=== PATIENT | female | born 1935 | race Caucasian/White ===

== ENCOUNTER 2019-12-14 00:59 | Day surgery (SDC) | payer MEDICARE, BC, SELFPAY ==
[2019-12-07 09:39] VITALS: BMI 25.2
--- NOTE | 2019-12-14 09:33 | PM.IMHP ---
H&P: HPI History of Present Illness Chief complaint: Personal Hx Colon Polyps Narrative: Fabi Sharma is a 84 year old female presents for surveillance colonoscopy. Last colonoscopy was in 2012 and had hyperplastic polyp. She does report bowel habit changes. She reports alternating constipation and diarrhea for the last 6 months. She says when she has diarrhea she will have multiple loose stools per day. She denies any melena, hematochezia, adominal pains or rectal pains. 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 She denies family hx of GI maligancies. Denies abnormal weight loss, fever or chills. She does have hx of GERD and takes famotidine which controls those symptoms well. Review of Systems Review of Systems: All systems reviewed & are unremarkable except as noted in HPI and below PMFSH Family History Family History (Updated 03/16/19 @ 16:12 by DOCTOR UNKNOWN) Sibling Family history of chronic obstructive pulmonary disease Family history of lung cancer Family history of coronary artery disease Patient's brother is Father Family history of chronic obstructive pulmonary disease, Onset Age: 67 Patient's father is Mother Family history of heart disease in male family member before age 55, Onset Age: 72 Patient's mother is Family history of cardiovascular disease, Onset Age: 72 Other Family history of malignant neoplasm Social History Social History Smoking status: Never smoker Second hand tobacco smoke exposure: No Alcohol intake: never Meds Home Medications and Allergies Home Medications Medication Instructions Recorded Confirmed Type amlodipine 5 mg tablet 5 mg PO DAILY 10/03/19 12/07/19 History denosumab 60 mg/mL subcutaneous 60 mg SUB-Q [id number] 10/03/19 12/07/19 History syringe fluticasone propionate 50 2 spray NASAL DAILY 10/03/19 12/07/19 History mcg/actuation nasal spray,suspension meloxicam 15 mg tablet 15 mg PO DAILY 10/03/19 12/07/19 History valsartan 160 mg tablet 160 mg PO BID 10/03/19 12/07/19 History famotidine 20 mg tablet 20 mg PO BID #180 tablet 10/16/19 12/07/19 Rx calcium carbonate-vitamin D3 1 tablet PO BID 12/07/19 12/07/19 History [Caltrate 600 plus D] diphenhydramine-acetaminophen 1 tablet PO HS PRN 12/07/19 12/07/19 History [Tylenol PM Extra Strength] magnesium carbonate 400 mg DAILY 12/07/19 12/07/19 History swcqxphs-gsa-[place]-lycopen-lutein 1 tablet PO DAILY 12/07/19 12/07/19 History [Centrum Silver] Allergies Allergy/AdvReac Type Severity Reaction Status Date / Time No Known Allergies Allergy Verified 12/14/19 09:44 Exam Const: General: cooperative, healthy appearing, comfortable, alert and awake Nutritional Appearance: average body habitus Orientation/consciousness: oriented to person, oriented to place, oriented to time and patient oriented x3 Limitations: no limitations HENMT: Head: normal to inspection and normocephalic Mouth: Yes Normal oral and palatal mucosa present and Yes moist mucous membranes Neck: Neck: normal visual inspection, supple and no JVD Carotids: no bruits Resp: Effort & Inspection: normal respiratory effort and no respiratory distress Auscultation: clear to auscultation bilaterally Cardio: Rate: regular rate Rhythm: regular rhythm Heart sounds: S1 normal heart sound present, S2 normal heart sound present, no gallops, no murmurs and no rubs GI: Inspection: normal to inspection GI Palp: No abdominal tenderness and No No hepatosplenomegaly present Percussion: Yes normal to percussion Auscultation: normal bowel sounds Rectal Exam: deferred Skin: General skin exam: normal color Lesions: no lesions Rashes: no rashes Neuro: General: oriented to person, oriented to place, oriented to time, patient oriented x3 and moves all extremities Cognition (Neuro): normal cognition Speech: normal speech Gait exam (Neuro): Normal gait pr
[2019-12-14 09:48] VITALS: BP 153/96; PULSE 103; RESP 20; TEMP 36.7; O2SAT 98; BMI 25.0
[2019-12-14] MEDS: LACTATED RINGERS 1,000 ML 150 ML IV CONT (09:51)
--- NOTE | 2019-12-14 10:21 | WPDANESEPPF ---
Anes - Initial Pre Proc Eval Procedure: Operation Date: 12/14/19 10:30 Proposed Procedures p Screening Colonoscopy - Evan Longoria DO Date/Time: 12/14/19 10:21 Surgeon: Evan Longoria DO Pre Op Diagnosis: Personal Hx Colon Polyps Patient Data Age: 84 Gender: F Height: 4 ft 9 in Weight: 52.4 kg Last Vital Signs Temp 98.1 F 12/14/19 09:48 Pulse 103 H 12/14/19 09:48 Resp 20 12/14/19 09:48 BP 153/96 H 12/14/19 09:48 Pulse Ox 98 12/14/19 09:48 Allergies Allergy/AdvReac Type Severity Reaction Status Date / Time No Known Allergies Allergy Verified 12/14/19 09:44 Home Medications Medication Instructions Recorded Confirmed Type amlodipine 5 mg tablet 5 mg PO DAILY 10/03/19 12/07/19 History denosumab 60 mg/mL subcutaneous 60 mg SUB-Q [id number] 10/03/19 12/07/19 History syringe fluticasone propionate 50 2 spray NASAL DAILY 10/03/19 12/07/19 History mcg/actuation nasal spray,suspension meloxicam 15 mg tablet 15 mg PO DAILY 10/03/19 12/07/19 History valsartan 160 mg tablet 160 mg PO BID 10/03/19 12/07/19 History famotidine 20 mg tablet 20 mg PO BID #180 tablet 10/16/19 12/07/19 Rx calcium carbonate-vitamin D3 1 tablet PO BID 12/07/19 12/07/19 History [Caltrate 600 plus D] diphenhydramine-acetaminophen 1 tablet PO HS PRN 12/07/19 12/07/19 History [Tylenol PM Extra Strength] magnesium carbonate 400 mg DAILY 12/07/19 12/07/19 History bonexzxp-yrv-XY-lycopen-lutein 1 tablet PO DAILY 12/07/19 12/07/19 History [Centrum Silver] Patient hx anesthesia problems: none Family hx anesthesia problems: none PMFSH Family History Family History (Updated 03/16/19 @ 16:12 by DOCTOR UNKNOWN) Sibling Family history of chronic obstructive pulmonary disease Family history of lung cancer Family history of coronary artery disease Patient's brother is Father Family history of chronic obstructive pulmonary disease, Onset Age: 67 Patient's father is Mother Family history of heart disease in male family member before age 55, Onset Age: 72 Patient's mother is Family history of cardiovascular disease, Onset Age: 72 Other Family history of malignant neoplasm Social History Social History Smoking status: Never smoker Second hand tobacco smoke exposure: No Alcohol intake: never Anes - Eval Final PreProcedure Day of Procedure 12/14/19 10:21 Patient weight: normal Heart: regular rate and rhythm Lungs: clear to auscultation Airway: Mallampati scale class II Neurological: alert and oriented Last oral intake: >/= 8 hours ASA classification: III Emergent: no Anesthetic plan: proceed Anesthesia type and monitoring: general GIVS and standard monitoring Informed Consent: The patient's anesthetic plan and its attendant risks and benefits were discussed with the patient/family/POA. Questions were solicited and answers provided to the satisfaction of the patient/family/POA.
[2019-12-14 10:55] VITALS: BP 88/45; PULSE 80; RESP 16; O2SAT 98
[2019-12-14 11:05] VITALS: BP 114/65; PULSE 76; RESP 16; O2SAT 99
[2019-12-14 11:15] VITALS: BP 134/63; PULSE 86; RESP 18; O2SAT 97
== END 2019-12-14 11:46 | disposition home or self-care (01) ==
PROVIDERS: PCP Internal Medicine; Visit Provider Internal Medicine Gastroenterology
PROC: 0DJD8ZZ Inspection of Lower Intestinal Tract, Via Natural or Artificial Opening Endoscopic (ICD-10-PCS; CPT 45378; principal; 2019-12-14 10:30)
DX: Z12.11 Encounter for screening for malignant neoplasm of colon (principal); D12.0 Benign neoplasm of cecum; K57.30 Diverticulosis of large intestine without perforation or abscess without bleeding; K64.8 Other hemorrhoids; R19.4 Change in bowel habit; Z87.19 Personal history of other diseases of the digestive system; K21.9 Gastro-esophageal reflux disease without esophagitis
CPT/HCPCS: 45380; 88305; J2704; J7120

== ENCOUNTER 2020-03-04 10:24 | Outpatient (CLI) | payer MEDICARE, BC, SELFPAY ==
--- NOTE | ~2020-03-04 | MM_ITS ---
EXAMINATION: MM screening vasquez BI w higinio HISTORY: Screening mammogram TECHNIQUE: Craniocaudal and mediolateral oblique 3-D tomosynthesis images were obtained and synthetic 2-D images were generated. CAD analysis was submitted and interpreted. COMPARISON: 01/18/2019, 12/20/2017, 12/14/2016 bilateral digital screening mammogram examinations BREAST PARENCHYMAL COMPOSITION: The breasts are heterogeneously dense, which may obscure small masses . FINDINGS: Occasional benign calcifications. Stable mild fibroglandular asymmetry. There is no evidenc e of suspicious mass, calcification, or architectural distortion to suggest malignancy in either [address]. There has been no suspicious interval change. IMPRESSION: 1. No mammographic evidence of malignancy. 2. Recommend routine screening mammography in one year. BI-RADS Category 2: Benign finding(s). Reviewed, dictated and finalized at location A.
== END 2020-03-04 10:25 | disposition home or self-care (01) ==
LOC: ANHIMG 10:28
PROVIDERS: PCP Internal Medicine; Visit Provider Nurse Practitioner
DX: Z12.31 Encounter for screening mammogram for malignant neoplasm of breast (principal)
CPT/HCPCS: 77063; 77067

== ENCOUNTER 2020-04-04 08:07 | Outpatient (CLI) | payer MEDICARE, BC, SELFPAY ==
[2020-04-04 08:55] LABS: Alanine Aminotransferase 39 U/L (4-35); Albumin Level 4.6 g/dL (3.5-5.1); Alkaline Phosphatase 83 U/L (38-126); Aspartate Amino Transferase 39 U/L (14-36); Bilirubin,Total 0.4 mg/dL (0.2-1.3); Blood Urea Nitrogen 22 mg/dL (7-17); Calcium 9.3 mg/dL (8.4-10.2); Carbon Dioxide 27 mmol/L (22-30); Chloride 104 mmol/L (98-107); Estimated Glomerular Filt Rate > 60; Glucose 98 mg/dL (65-105); Potassium 3.7 mmol/L (3.4-5.0); Sodium 138 mmol/L (137-145)
[2020-04-04 10:24] LABS: Thyroid Stimulating Hormone 0.082 uIU/mL (0.465-4.680)
[2020-04-04 13:56] LABS: Free T4 Free Thyroxine 1.25 ng/mL (0.78-2.19)
== END 2020-04-04 08:08 | disposition home or self-care (01) ==
LOC: ANHLAB 08:10
PROVIDERS: PCP Internal Medicine; Visit Provider Internal Medicine
DX: E05.90 Thyrotoxicosis, unspecified without thyrotoxic crisis or storm (principal); I10 Essential (primary) hypertension; Z79.899 Other long term (current) drug therapy
CPT/HCPCS: 36415; 80053; 84439; 84443

== ENCOUNTER 2020-05-02 07:14 | Outpatient (CLI) | payer MEDICARE, BC, SELFPAY ==
--- NOTE | ~2020-05-02 | CT_ITS ---
EXAMINATION: CT abdomen w con INDICATION: Right-sided abdominal pain TECHNIQUE: Computed tomographic images of the abdomen were obtained after the administration of 100 c c of Omnipaque 350 intravenous contrast. The dose-length product (DLP) was 147.55 mGy-cm. Automated e xposure control and iterative reconstruction technique were employed. COMPARISON: 06/16/2019 FINDINGS: The lung bases are clear. The heart size is normal. The gallbladder is surgically absent. T he liver, spleen, pancreas, and adrenal glands are normal. The kidneys are unremarkable. There are no pathologically enlarged abdominal lymph nodes. There is calcified atherosclerosis of the aorta and m any of the other arteries. A 6 mm cyst is again noted in the right kidney. The left kidney is unremar kable. There is no free intraperitoneal gas or evidence of bowel obstruction. There is severe lumbar spondylosis. Again seen are several fat containing epigastric hernias, one of which demonstrates incr ease in size. IMPRESSION: 1. Multiple fat-containing epigastric hernias, one of which demonstrates slight interval increase in size. Reviewed, dictated and finalized at location A.
== END 2020-05-02 07:15 | disposition home or self-care (01) ==
LOC: ANHIMG 07:17
PROVIDERS: PCP Internal Medicine; Visit Provider Nurse Practitioner
DX: Z90.49 Acquired absence of other specified parts of digestive tract (principal); K44.9 Diaphragmatic hernia without obstruction or gangrene
CPT/HCPCS: 74160; Q9967

== ENCOUNTER 2020-08-06 14:25 | Outpatient (CLI) | payer MEDICARE, BC, SELFPAY ==
[2020-08-06 15:04] LABS: Basophils Percent Auto 0.5 % (0.2-1.2); Eosinophils Absolute Auto 0.1 K/mm3 (0-0.3); Eosinophils Percent Auto 0.6 % (0-4.4); Hematocrit 38.8 % (37.0-47.0); Hemoglobin 13.1 g/dL (12.0-15.0); Immature Granulocyte Absolute 0.05 K/mm3 (0.00-0.031); Immature Granulocyte Percent A 0.6 % (0-0.5); Lymphocytes Absolute Auto 2.42 K/mm3 (0.9-3.2); Lymphocytes Percent Auto 27.6 % (18.3-44.2); Mean Corpuscular HGB Conc 33.8 g/dl (32-36); Mean Corpuscular Volume 94.6 fl (80-100); Monocytes Absolute Auto 0.7 K/mm3 (0.1-0.6); Monocytes Percent Auto 7.7 % (2.6-8.5); Neutrophils Absolute Auto 5.5 K/mm3 (1.3-6.7); Platelet Count Result 430 k/mm3 (150-375); Red Cell Distribution Width 13.2 % (11.5-14.5); White Blood Count 8.8 K/mm3 (4.5-10.0)
[2020-08-06 15:15] LABS: Alanine Aminotransferase 81 U/L (4-35); Albumin Level 4.7 g/dL (3.5-5.1); Alkaline Phosphatase 96 U/L (38-126); Anion Gap 9 mmol/L (8-16); Aspartate Amino Transferase 47 U/L (14-36); Bilirubin,Total 0.3 mg/dL (0.2-1.3); Blood Urea Nitrogen 23 mg/dL (7-17); Calcium 9.3 mg/dL (8.4-10.2); Carbon Dioxide 26 mmol/L (22-30); Chloride 102 mmol/L (98-107); Estimated Glomerular Filt Rate > 60; Glucose 91 mg/dL (65-105); Potassium 3.9 mmol/L (3.4-5.0); Sodium 137 mmol/L (137-145)
[2020-08-06 15:45] LABS: Thyroid Stimulating Hormone 0.046 uIU/mL (0.465-4.680)
== END 2020-08-06 14:26 | disposition home or self-care (01) ==
PROVIDERS: PCP Internal Medicine; Visit Provider Nurse Practitioner
DX: R53.83 Other fatigue (principal); R11.0 Nausea
CPT/HCPCS: 36415; 80053; 84443; 85025

== ENCOUNTER 2020-08-07 07:13 | Outpatient (NON) | payer MEDICARE, BC, SELFPAY ==
[2020-08-08 02:14] LABS: SARS-CoV-2 RNA PCR Negative
== END 2020-08-07 07:14 ==
PROVIDERS: PCP Internal Medicine; Visit Provider Nurse Practitioner
DX: R11.0 Nausea (principal); R53.83 Other fatigue; Z20.828 Contact with and (suspected) exposure to other viral communicable diseases
CPT/HCPCS: 87635; C9803; U0003

== ENCOUNTER → 2020-08-13 07:49 | Outpatient (CLI) | payer MEDICARE, BC, SELFPAY ==
--- NOTE | ~2020-08-13 | US_ITS ---
EXAMINATION: US abdomen limited EXAM DATE: 08/13/2020 08:13 INDICATION: Elevated liver function tests. TECHNIQUE: Multiple grayscale and Doppler images of the abdomen right upper quadrant were obtained (b y a technologist who performed the scan) and subsequently reviewed. Comparison is made to prior exami nation from 02/18/2010. FINDINGS: The pancreatic head and body are normal in appearance. The pancreatic tail is not visualized. The l iver has normal echogenicity and contour. There are no focal liver lesions identified. There is no evidence of intrahepatic biliary duct dilation. Portal venous flow was seen in the hepatopedal, nor mal direction and has normal Doppler waveform. No right-sided hydronephrosis. Common bile duct measures 4 mm, which is normal. The gallbladder fossa is unremarkable. IMPRESSION: 1. Unremarkable abdominal ultrasound exam. Reviewed, dictated and finalized at location A.
== END ==
PROVIDERS: PCP Internal Medicine; Visit Provider Nurse Practitioner
DX: R74.8 Abnormal levels of other serum enzymes (principal)
CPT/HCPCS: 76705

== ENCOUNTER 2020-10-14 07:46 | Outpatient (CLI) | payer MEDICARE, BC, SELFPAY ==
[2020-10-14 08:17] LABS: Alanine Aminotransferase 28 U/L (4-35); Albumin Level 4.1 g/dL (3.5-5.1); Alkaline Phosphatase 77 U/L (38-126); Anion Gap 8 mmol/L (8-16); Aspartate Amino Transferase 32 U/L (14-36); Bilirubin,Total 0.4 mg/dL (0.2-1.3); Blood Urea Nitrogen 22 mg/dL (7-17); Calcium 9.2 mg/dL (8.4-10.2); Carbon Dioxide 28 mmol/L (22-30); Chloride 102 mmol/L (98-107); Cholesterol 221 mg/dL (0-200); Estimated Glomerular Filt Rate > 60; Glucose 97 mg/dL (65-105); HDL Direct 75 mg/dL; Potassium 3.9 mmol/L (3.4-5.0); Sodium 138 mmol/L (137-145); Triglycerides 86 mg/dL (<150)
[2020-10-14 08:28] LABS: LDL Cholesterol Direct 107 mg/dL
[2020-10-14 08:50] LABS: Thyroid Stimulating Hormone 0.063 uIU/mL (0.465-4.680)
[2020-10-14 08:58] LABS: Free T4 Free Thyroxine 1.27 ng/mL (0.78-2.19); Vitamin D 25 Hydroxy 66.3 ng/mL
== END 2020-10-14 07:47 | disposition home or self-care (01) ==
PROVIDERS: PCP Internal Medicine; Visit Provider Nurse Practitioner
DX: E78.2 Mixed hyperlipidemia (principal); E55.9 Vitamin D deficiency, unspecified; E05.90 Thyrotoxicosis, unspecified without thyrotoxic crisis or storm
CPT/HCPCS: 36415; 80053; 80061; 82306; 84439; 84443

== ENCOUNTER 2021-02-23 13:13 | Observation (INO) | payer MEDICARE, BC, SELFPAY ==
--- NOTE | ~2021-02-23 | XR_ITS ---
EXAMINATION: XR hip RT min 3V w AP pelvis INDICATION: Right hip pain TECHNIQUE: AP view of the pelvis and three views of the right hip are obtained. COMPARISON: 06/24/2018 FINDINGS: Bone alignment is normal. There is no fracture. There is mild osteoarthritis of the hips. C alcified atherosclerosis is noted. There are phleboliths in the pelvis. IMPRESSION: 1. No acute osseous abnormality. Reviewed, dictated and finalized at location A.
--- NOTE | ~2021-02-23 | MR_ITS ---
EXAMINATION: MR hip RT wo con DATE: 02/25/2021 07:37 INDICATION: Right hip pain. Fall. TECHNIQUE: Magnetic resonance imaging (MRI) of the right hip was performed without intravenous contra st. Sequences included axial and coronal PD-weighted FS FSE and axial T1-weighted FSE of the pelvis. Sequences of the hip included 2D FIESTA, T1-weighted fast GRE, and axial, coronal, and sagittal PD-we ighted FS FSE. COMPARISON: Pelvis and right hip radiographs 02/23/2021 FINDINGS: Bones/cartilage: There is lumbar levoscoliosis and severe spondylosis. No fracture. There is moderate osteoarthritis o f the hips including partial thickness cartilage loss. Labrum: There is a tear of the right acetabular labrum. Fluid: There are small hip joint effusions bilaterally. There is moderate bilateral trochanteric bursitis. Soft tissues: There is moderate tendinopathy of the hamstring origins bilaterally. The iliopsoas tendons are normal . There are partial tears of the gluteus minimus tendons bilaterally. The gluteus medius tendons are normal. IMPRESSION: 1. No fracture. 2. Moderate osteoarthritis of the hips. 3. Small bilateral hip joint effusions. 4. Partial tears of the gluteus minimus tendons bilaterally. 5. Moderate bilateral trochanteric bursitis. Reviewed, dictated and finalized at location A.
[2021-02-23 13:21] VITALS: BP 158/64; PULSE 82; RESP 20; TEMP 36.9; O2SAT 100
[2021-02-23] MEDS: KETOROLAC 15 MG/ML VIAL (*BKC) IM (15:59)
--- NOTE | 2021-02-23 17:04 | ED.LOWEXIN ---
HPI - Extremity Injury (Lower) General Chief Complaint: Extremity Injury, Lower Stated Complaint: right leg pain worsening since Time Seen by Provider: 02/23/21 14:02 Source: patient Mode of arrival: wheelchair Limitations: no limitations History of Present Illness HPI Narrative: 85-year-old female Here for right hip pain Patient states that about 2 or 3 months ago she had a bout of sciatica involving her left leg and received a Medrol Dosepak at that time and improved A couple weeks ago she started having a different sort of pain in her right hip area which tends to start laterally over the trochanter and radiate into the groin and was worse with movement or walking She got another Dosepak but it has not helped Several days ago she fell off of a stool and landed on her right hip and since then she has had more significant pain and effectively has been unable to walk; she is gotten to the bathroom only by holding on to her bed and a family member and barely makes it She does not have any numbness or weakness or bowel or bladder symptoms and really does not have any back pain Related Data Home Medications Medication Instructions Recorded Confirmed calcium carbonate-vitamin D3 1 tablet PO BID 12/07/19 11/01/20 [Caltrate 600 plus D] diphenhydramine-acetaminophen 1 tablet PO HS PRN 12/07/19 11/01/20 [Tylenol PM Extra Strength] pkxzdked-jev-JY-lycopen-lutein 1 tablet PO DAILY 12/07/19 11/01/20 [Centrum Silver] magnesium carbonate See Rx Instructions .ROUTE DAILY 08/06/20 11/01/20 Allergies Allergy/AdvReac Type Severity Reaction Status Date / Time No Known Allergies Allergy Verified 10/29/20 08:14 Review of Systems Review of Systems: All systems reviewed & are unremarkable except as noted in HPI and below Constitutional: Constitutional: Denies chills, Denies fever(s) and Denies headache(s) ENT: Denies headache(s) and Denies sore throat Cardiovascular: Cardiovascular: Denies chest pain and Denies dyspnea Respiratory: Respiratory: Denies cough and Denies dyspnea Gastrointestinal: Gastrointestinal: Denies abdominal pain, Denies diarrhea and Denies vomiting Genitourinary: Genitourinary: Denies urinary frequency and Denies dysuria Musculoskeletal: Musculoskeletal: Reports myalgias, Denies deformity, Reports arthralgias, Denies joint swelling and Denies numbness Integumentary/Breasts: Skin/Breast: Denies rash and Denies wounds Neurologic: Denies headache(s), Denies focal weakness and Denies numbness Psychiatric: Psychiatric: Reports no additional psychiatric complaints Allergic/Immunologic: Allergic/Immunologic: Reports no additional allergic/immunologic complaints PMFSH Past Medical History Medical History (Updated 02/23/21 @ 17:14 by Evan Elliott MD) Hyperthyroidism Overweight Screening for breast cancer Surgical History Surgical History (Updated 10/29/20 @ 08:25 by Maria M Fulton) Hx laparoscopic cholecystectomy Hx of hysterectomy Family History Family History Sibling Family history of chronic obstructive pulmonary disease Family history of lung cancer Family history of coronary artery disease Patient's brother is Father Family history of chronic obstructive pulmonary disease, Onset Age: 67 Patient's father is Mother Family history of heart disease in male family member before age 55, Onset Age: 72 Patient's mother is Family history of cardiovascular disease, Onset Age: 72 Other Family history of malignant neoplasm Social History Social History Smoking status: Never smoker Second hand tobacco smoke exposure: No Alcohol intake: never Gender identity (if verbalized by the patient): Female Spiritual care concerns: No Exam Const: General: cooperative and alert Orientation/consciousness: patient oriented x3
[2021-02-23 18:02] LABS: Basophils Percent Auto 0.3 % (0.2-1.2); Eosinophils Percent Auto 0.2 % (0-4.4); Hemoglobin 15.4 g/dL (12.0-15.0); Immature Granulocyte Absolute 0.04 K/mm3 (0.00-0.031); Immature Granulocyte Percent A 0.3 % (0-0.5); Lymphocytes Absolute Auto 1.62 K/mm3 (0.9-3.2); Lymphocytes Percent Auto 13.9 % (18.3-44.2); Mean Corpuscular HGB Conc 34.2 g/dl (32-36); Mean Corpuscular Hemoglobin 31.8 pg (26-34); Mean Platelet Volume 8.6 fl (7.4-10.4); Monocytes Absolute Auto 0.5 K/mm3 (0.1-0.6); Monocytes Percent Auto 4.4 % (2.6-8.5); Neutrophils Absolute Auto 9.5 K/mm3 (1.3-6.7); Neutrophils Percent Auto 80.9 % (45.5-73.1); Platelet Count Result 382 k/mm3 (150-375); Red Blood Count 4.84 M/mm3 (4.2-5.4); White Blood Count 11.7 K/mm3 (4.5-10.0)
[2021-02-23 18:07] VITALS: BP 160/77; PULSE 79; RESP 16; TEMP 36.6; O2SAT 98
[2021-02-23 18:14] LABS: Anion Gap 11 mmol/L (8-16); Blood Urea Nitrogen 18 mg/dL (7-17); Calcium 9.1 mg/dL (8.4-10.2); Carbon Dioxide 25 mmol/L (22-30); Chloride 101 mmol/L (98-107); Estimated Glomerular Filt Rate > 60; Glucose 105 mg/dL (65-105); Potassium 4.3 mmol/L (3.4-5.0); Sodium 137 mmol/L (137-145)
[2021-02-23 18:25] VITALS: BMI 25.6
--- NOTE | 2021-02-23 18:29 | ADMGEN ---
This patient, Alessandra Sharma, was admitted to 3 [facility] Surg Room 314-01. Patient/family oriented to hospital policies and general routines including ID bracelet, bed and alarms, visiting hours, pain management, procedures, bathroom and other care routines, personal items, smoking policy, room service/diet, and visiting hours. Information on how to activate the Rapid Response Team has been discussed. Patient/Family are encouraged to report perceived risks to care and to ask questions if they do not understand what they are told or what they should do.
[2021-02-23 18:38] VITALS: BP 173/70; PULSE 82; RESP 16; TEMP 36.3; O2SAT 99
[2021-02-23] MEDS: LACTATED RINGERS 1,000 ML 30 ML IV CONT (20:28)
[2021-02-23] MEDS: HYDROcodone/acetaminophen (*CRX) 5-325 MG TABLET 1 TAB PO (20:28)
--- NOTE | 2021-02-23 20:57 | PM.IMHP ---
H&P: HPI History of Present Illness Date/Time: 02/23/21 20:57 this is a 85-year-old female patient who has a history of osteoarthritis and osteoporosis. The patient has a history of having sciatica to her left hip and she was given a Solu-Medrol Dosepak which helped over the winter. However the patient has been having some pain with the right hip She was given a Solu-Medrol Dosepak which did not seem to help. The patient stated this past Wednesday night she stood up from the toilet and fell back on the ground and was gotten up with help but she is having difficulty moving and walking on that leg she cannot tolerate weight on that leg. She stated she laid around all day yesterday. The patient was given a etodolac for the discomfort by her primary care doctor and the patient stated that she stopped taking it because the side effects stated that it could affect her blood pressure. The patient is unable to do straight leg raises to the right and can do straight leg raises to the left. X-ray is read as no acute osseous abnormality. And started on [place] which the patient stated helped her discomfort. Date of service of 02/23/2021. Chief Complaint: Right hip pain Review of Systems Review of Systems: All systems reviewed & are unremarkable except as noted in HPI and below Constitutional: Constitutional: Reports as per HPI and Reports no additional constitutional complaints Eyes: Eyes: Reports as per HPI and Reports no additional eye complaints ENT: Reports system reviewed and no additional complaints, except as documented and Reports Normal hearing present Cardiovascular: Cardiovascular: Reports no additional cardiovascular complaints Respiratory: Respiratory: Reports no additional respiratory complaints and Reports no additional respiratory complaints Gastrointestinal: Gastrointestinal: Reports as per HPI and Reports no additional gastrointestinal complaints Musculoskeletal: Musculoskeletal: Reports no additional musculoskeletal complaints Integumentary/Breasts: Skin/Breast: Reports system reviewed and no additional complaints, except as docu and Reports as per HPI Neurologic: Reports system reviewed and no additional complaints, except as documented, Reports as per HPI and Reports Normal hearing present Psychiatric: Psychiatric: Reports no additional psychiatric complaints and Reports as per HPI Endocrine: Endocrine: Reports no additional endocrine complaints Hematologic/Lymphatic: Hematologic/Lymphatic: Reports no additional hematologic/lymphatic complaints Allergic/Immunologic: Allergic/Immunologic: Reports no additional allergic/immunologic complaints [facility] Past Medical History Medical History (Updated 02/23/21 @ 21:01 by Jasmina Wells NP) HTN (hypertension), malignant Hyperthyroidism Osteoporosis Overweight Screening for breast cancer Surgical History Surgical History (Updated 02/23/21 @ 21:03 by Jasmina Wells NP) H/O colonoscopy with polypectomy Hx laparoscopic cholecystectomy Hx of cataract surgery Hx of hysterectomy Hx of resection of liver Family History Family History Sibling Family history of chronic obstructive pulmonary disease Family history of lung cancer Family history of coronary artery disease Patient's brother is Father Family history of chronic obstructive pulmonary disease, Onset Age: 67 Patient's father is Mother Family history of heart disease in male family member before age 55, Onset Age: 72 Patient's mother is Family history of cardiovascular disease, Onset Age: 72 Other Family history of malignant neoplasm Social History Social History (Updated 02/23/21 @ 21:02 by Jasmina Wells NP) Social History: The patient is and lives with his significant other a rather he lives with her. Her niece is the durable power attorney recruiter for healthcare. The patient is a full code. The patient does
[2021-02-23 22:00] VITALS: BP 137/61; PULSE 69; RESP 20; TEMP 36.6; O2SAT 98
[2021-02-24] MEDS: HYDROcodone/acetaminophen (*CRX) 5-325 MG TABLET 1 TAB PO ×4 (05:43→22:37)
[2021-02-24 06:00] VITALS: BP 159/58; PULSE 70; RESP 18; TEMP 36.6; O2SAT 100
[2021-02-24 06:20] LABS: Basophils Percent Auto 0.2 % (0.2-1.2); Eosinophils Absolute Auto 0.1 K/mm3 (0-0.3); Eosinophils Percent Auto 0.8 % (0-4.4); Hematocrit 39.9 % (37.0-47.0); Hemoglobin 13.6 g/dL (12.0-15.0); Immature Granulocyte Absolute 0.05 K/mm3 (0.00-0.031); Immature Granulocyte Percent A 0.5 % (0-0.5); Lymphocytes Percent Auto 17.7 % (18.3-44.2); Mean Corpuscular HGB Conc 34.1 g/dl (32-36); Mean Corpuscular Hemoglobin 31.6 pg (26-34); Mean Corpuscular Volume 92.8 fl (80-100); Mean Platelet Volume 8.9 fl (7.4-10.4); Monocytes Absolute Auto 0.8 K/mm3 (0.1-0.6); Monocytes Percent Auto 7.7 % (2.6-8.5); Neutrophils Absolute Auto 7.8 K/mm3 (1.3-6.7); Neutrophils Percent Auto 73.1 % (45.5-73.1); Platelet Count Result 383 k/mm3 (150-375); White Blood Count 10.7 K/mm3 (4.5-10.0)
[2021-02-24 06:29] LABS: Alanine Aminotransferase 31 U/L (4-35); Albumin Level 4.3 g/dL (3.5-5.1); Alkaline Phosphatase 68 U/L (38-126); Anion Gap 7 mmol/L (8-16); Aspartate Amino Transferase 30 U/L (14-36); Bilirubin,Total 0.5 mg/dL (0.2-1.3); Blood Urea Nitrogen 16 mg/dL (7-17); Calcium 8.8 mg/dL (8.4-10.2); Carbon Dioxide 27 mmol/L (22-30); Chloride 102 mmol/L (98-107); Estimated Glomerular Filt Rate > 60; Glucose 93 mg/dL (65-105); Potassium 3.5 mmol/L (3.4-5.0); Sodium 136 mmol/L (137-145)
[2021-02-24 07:51] LABS: Vitamin D 25 Hydroxy 55.9 ng/mL
--- NOTE | 2021-02-24 08:48 | PCOTNOTE ---
Attempted OT evaluation, but unable to complete. Spoke to LIVE Gutiérrez who advised to hold until after CT scan. Will continue to follow.
--- NOTE | 2021-02-24 09:01 | PM.CNOR ---
Assessment and Plan Assessment and plan (1) Right hip pain: Code(s): M25.551 - Pain in right hip Status: Acute Assessment and Plan: Orthopedic consult requested for this 85-year-old female with a history of right hip pain for the last several weeks which has worsened status post fall. History, exam and radiographs reviewed with the patient. Radiographs the right hip reveal no evidence of fracture, dislocation or acute abnormalities. Patient has significant tenderness over the greater trochanter of the right hip with palpation. She is unable to lay on the affected side. She does also have pain with internal and external rotation of the right hip in the groin region. No shortening or external rotation noted. Positive ankle dorsiflexion / plantar flexion. 2+ pedal pulses and sensation is intact. Recommend MRI of the right hip at this time without contrast for further evaluation to rule out fracture which was unable to be seen on radiographs. Patient to be nonweightbearing of the right lower extremity in the interim. Recommend ice to the lateral hip and pain control. Pending MRI results, we will determine further plan of care. Thank you for allowing us to assist in the care this patient. Additional Plan This document was completed by using [employer] Direct speech recognition software, therefore spray gunner variances may occur. Despite proofreading, typographical errors may also occur. History of Present Illness HPI Consult date: 02/24/21 Requesting physician: Jasmina Wells NP Consult reason: other (Right Hip Pain s/p Fall ) Chief complaint: Right hip pain Narrative: 85-year-old female admitted with right hip pain. Patient was admitted from [facility] for further evaluation of right hip pain status post fall. Per patient report, she has had several week history of right lateral-sided hip pain. She contacted her primary care physician with started on a Medrol Dosepak which did not relieve her pain. She reports pain when laying on the affected side and when turning from side to side. She reports that several days ago she went to stand off of a stool and fell back down and hurt her hip. She has had increasing pain with ambulation since that time. Her pain radiates down to the right knee as well. Radiographs obtained in the emergency room reveal no acute osseous abnormality. She was admitted for further evaluation and pain control. Orthopedic consult requested by hospitalist physician. Review of Systems Constitutional: Constitutional: Reports no additional constitutional complaints, Denies excessive sweating, Denies fever(s) and Denies weight gain Eyes: Eyes: Reports no additional eye complaints and Denies change in vision ENT: Reports system reviewed and no additional complaints, except as documented and Reports Normal hearing present Cardiovascular: Cardiovascular: Denies chest pain, Denies diaphoresis, Denies leg ulcers and Denies dyspnea on exertion Respiratory: Respiratory: Reports no additional respiratory complaints, Denies cough and Denies dyspnea on exertion Gastrointestinal: Gastrointestinal: Reports no additional gastrointestinal complaints, Denies abdominal pain, Denies constipation, Denies nausea and Denies vomiting Genitourinary: Genitourinary: Denies hematuria and Denies urinary frequency Musculoskeletal: Musculoskeletal: Reports no additional musculoskeletal complaints and Reports as per HPI Neurologic: Reports Normal hearing present Endocrine: Endocrine: Reports no additional endocrine complaints, Denies change in body appearance, Denies excessive sweating, Denies polyphagia, Denies polydipsia and Denies polyuria PMFSH Past Medical History Medical History HTN (hypertension), malignant Hyperthyroidism Osteoporosis Overweight Screening for breast cancer Surgical History Surgical History (Reviewed 02/24/21 @ 11:50 by Marla
--- NOTE | 2021-02-24 09:24 | PCPTNOTE ---
Attempted PT eval. Hold therapy until CT scan done. Will await results.
[2021-02-24] MEDS: amLODIPine BESYLATE 5 MG TABLET BY MOUTH (09:27)
[2021-02-24] MEDS: MULTIVITAMINS /C LUTEIN (CENTRUM SILVER) TABLET *BKC 1 TAB PO (09:28)
[2021-02-24] MEDS: VALSARTAN 160 MG TABLET PO ×2 (09:28→16:31)
[2021-02-24] MEDS: PANTOPRAZOLE 40 MG TABLET PO (09:28)
--- NOTE | 2021-02-24 10:05 | PC.NURSE ---
to CT per bed
--- NOTE | 2021-02-24 10:14 | PC.NURSE ---
patient returning to room per bed. CT cancelled
[2021-02-24 14:00] VITALS: BP 132/78; PULSE 68; RESP 18; TEMP 36.7; O2SAT 97
--- NOTE | 2021-02-24 14:46 | PCOTNOTE ---
Attempted OT evaluation, but unable to complete at this time. Spoke to RN, patient went down for CT scan earlier, but scan was cancelled and MRI ordered instead. Patient still waiting to go for MRI. Per discussion with PA earlier, PA recommended waiting until after testing. Will attempt again tomorrow.
--- NOTE | 2021-02-24 16:55 | PM.IMPN ---
Progress Note: A&P Assessment and Plan (1) Acute hip pain: Code(s): M25.559 - Pain in unspecified hip Status: Acute Assessment and Plan: History of right hip pain for a few weeks acutely worsened after a mechanical fall when she was standing up from a seated position. XR shows no acute fractures. Waiting on MRI to evaluate for occult fracture or other pathology causing her pain. Appreciate orthopedic recommendations; MRI is ordered and she is to be nonweightbearing RLE until MRI is obtained. Continue supportive care with ice and pain control with norco and tylenol as needed. (2) HTN (hypertension), malignant: Code(s): I10 - Essential (primary) hypertension Status: Chronic Assessment and Plan: BP intermittently elevated, suspect related to pain. More stable this afternoon, last 132/78. Continue home amlodipine and valsartan. Monitor BP and adjust treatment as needed. Subjective Date/time seen: 02/24/21 1430 Interval history: Ms. Sharma is an 85yo F admitted for acute right hip pain. She describes right hip pain has been ongoing for a few weeks which worsened a few days ago when she fell trying to stand up from a seated position and was unable to walk yesterday due to pain. She reports pain is tolerable at present while she is resting in bed. She denies chest pain or shortness of breath. No nausea or vomiting. Review of Systems Review of Systems: All systems reviewed & are unremarkable except as noted in HPI and below Exam Narrative: Exam Narrative: General: Elderly female resting comfortably in semi-montez's position in bed in no acute distress. HEENT: Normocephalic, EOMI, oral mucosa moist. Cardiovascular: Rate and rhythm are regular. Respiratory: Lungs clear to auscultation bilaterally. Respirations even and non-labored. Tolerating room air. Abdomen: Soft, non-tender, non-distended, bowel sounds present. Extremities: Peripheral pulses intact. No edema or pain to palpation. Right lower extremity is neurovascularly intact. Pain to palpation over right hip and pain with range of motion. Neuro: Awake and alert. Answering questions appropriately. No focal neurological deficits. Speech is clear. Objective Data Vital Signs Vital Signs: Last Vital Signs Temp 98.0 F 02/24/21 14:00 Pulse 68 02/24/21 14:00 Resp 18 02/24/21 14:00 BP 132/78 02/24/21 14:00 Pulse Ox 97 02/24/21 14:00 Intake/Output Intake/Output: Intake & Output 02/21/21 02/22/21 02/23/21 02/24/21 23:59 23:59 23:59 23:59 Intake Total 540 Output Total 300 Balance 240 Meds/Results Medications: Active Medications Generic Name Dose Route Start Last Admin Trade Name Freq PRN Reason Stop Dose Admin Acetaminophen 650 mg 02/23/21 17:14 Acetaminophen 325 Mg Tablet PO Q4H PRN Mild Pain (1-3) or Fever Hydrocodone Bitart/Acetaminophen 1 tab 02/23/21 17:14 02/24/21 16:32 Hydrocodone/Acetaminophen (*Crx) 5-325 Mg Tablet PO 1 tab Q4H PRN Administration Pain Rated 4-6 Amlodipine Besylate 5 mg 02/24/21 09:00 02/24/21 09:27 Amlodipine Besylate 5 Mg Tablet BY MOUTH 5 mg DAILY [facility] Administration Calcium Carbonate 500 mg 02/24/21 09:00 02/24/21 16:31 Calcium/Vitamin D 500 Mg Tablet PO 500 mg BID [facility] Administration Latanoprost 1 drop 02/24/21 21:00 Latanoprost 0.005% Op Soln 2.5 Ml Btl EACH EYE HS [facility] Multivitamins/Minerals 1 tab 02/24/21 09:00 02/24/21 09:28 Multivitamins /C Lutein (Centrum Silver) Tablet *Bkc PO 1 tab DAILY [facility] Administration Ondansetron HCl 4 mg 02/23/21 17:14 Ondansetron Inj 4 Mg/2 Ml Vial IV PUSH Q4H PRN Nausea Pantoprazole Sodium 40 mg 02/24/21 09:00 02/24/21 09:28 Pantoprazole 40 Mg Tablet PO 40 mg QAM [facility] Administration Valsartan 160 mg 02/24/21 09:00 02/24/21 16:31 Valsartan
[2021-02-24] MEDS: ACETAMINOPHEN 325 MG TABLET 650 MG PO (20:19)
[2021-02-24] MEDS: LATANOPROST 0.005% OP SOLN 2.5 ML BTL 1 DROP EACH EYE (20:20)
[2021-02-24 22:00] VITALS: BP 147/57; PULSE 68; RESP 18; TEMP 36.2; O2SAT 97
[2021-02-25] MEDS: HYDROcodone/acetaminophen (*CRX) 5-325 MG TABLET 1 TAB PO (04:32)
[2021-02-25 06:00] VITALS: BP 149/68; PULSE 65; RESP 18; TEMP 35.9; O2SAT 97
[2021-02-25 06:30] LABS: Basophils Percent Auto 0.2 % (0.2-1.2); Eosinophils Absolute Auto 0.1 K/mm3 (0-0.3); Eosinophils Percent Auto 0.5 % (0-4.4); Hematocrit 39.5 % (37.0-47.0); Hemoglobin 13.6 g/dL (12.0-15.0); Immature Granulocyte Absolute 0.07 K/mm3 (0.00-0.031); Immature Granulocyte Percent A 0.4 % (0-0.5); Lymphocytes Absolute Auto 1.57 K/mm3 (0.9-3.2); Mean Corpuscular HGB Conc 34.4 g/dl (32-36); Mean Corpuscular Hemoglobin 31.8 pg (26-34); Mean Corpuscular Volume 92.3 fl (80-100); Mean Platelet Volume 9.1 fl (7.4-10.4); Monocytes Percent Auto 6.4 % (2.6-8.5); Neutrophils Absolute Auto 12.9 K/mm3 (1.3-6.7); Neutrophils Percent Auto 82.5 % (45.5-73.1); Platelet Count Result 373 k/mm3 (150-375); Red Blood Count 4.28 M/mm3 (4.2-5.4); Red Cell Distribution Width 13.8 % (11.5-14.5); White Blood Count 15.7 K/mm3 (4.5-10.0)
[2021-02-25 06:44] LABS: Anion Gap 4 mmol/L (8-16); Blood Urea Nitrogen 16 mg/dL (7-17); Calcium 8.8 mg/dL (8.4-10.2); Carbon Dioxide 28 mmol/L (22-30); Chloride 100 mmol/L (98-107); Estimated Glomerular Filt Rate > 60; Glucose 100 mg/dL (65-105); Magnesium 1.8 mg/dL (1.6-2.3); Sodium 132 mmol/L (137-145)
--- NOTE | 2021-02-25 07:58 | PC.NURSE ---
patient returned to floor from MRI at 723
--- NOTE | 2021-02-25 08:29 | PM.PNORT ---
Progress Note: A&P Assessment and Plan (1) Right hip pain: Code(s): M25.551 - Pain in right hip Status: Acute Assessment and Plan: Patient comfortable at rest but has difficulty with movement and weight-bearing. MRI performed this morning. Will try and get results of that. Discussed conservative treatment versus other options depending on what MRI shows. Patient verbalized understanding. Subjective Subjective Date/Time Seen: 02/25/21 08:29 Patient awake and alert. Complains of right hip pain radiating to the knee. Not much better today. She has been in bed. She is comfortable at rest but has pain with any movement or weight-bearing. MRI performed by her report this morning. Exam Const: General: cooperative Nutritional Appearance: average body habitus Orientation/consciousness: patient oriented x3 Limitations: no limitations HENMT: Head: normal to inspection Ears: hearing grossly normal bilaterally General nose exam: Normal external nose present Face and sinus: normal facial exam Mouth: Yes moist mucous membranes Teeth and gingiva: dentition normal Eyes: General: appearance normal, both eyes and all related structures Pupils: Equal, round and reactive pupils present EOM: EOMs intact bilaterally Neck: Neck: normal visual inspection Chest: Chest palpation & inspection: normal inspection of the chest Resp: Effort & Inspection: normal respiratory effort and able to speak in complete sentences Cardio: Jugular venous distension: no JVD Neuro: General: patient oriented x3 Cranial nerves: Yes Equal, round and reactive pupils present Extrem: General: normal to inspection and full ROM Right lower extremity: full ROM (No groin pain ), hip/thigh Details: normal to inspection, tenderness Location: of the hip Location: anteriorly and over the greater trochanter, of the proximal upper leg Location: laterally and of the mid upper leg Location: laterally, abnormal ROM Details: pain with active ROM during Details: to internal rotation and to external rotation and pain with resistance to Details: to internal rotation and to external rotation and other, knee Details: normal to inspection, tenderness Location: of the lateral joint line ( Lateral) and of the proximal tibia Details: laterally and normal ROM; no swelling, lower leg Details: normal to inspection and no edema; no tenderness, ankle Details: normal to inspection, no edema and normal ROM and foot Details: normal capillary refill, toes with normal ROM and vascular exam Details: dorsalis pedis pulse present Left lower extremity: normal to inspection, full ROM (No groin pain ), hip/thigh (]) Details: normal to inspection; no tenderness and no swelling and knee Details: normal to inspection and normal ROM; no tenderness and no swelling Objective Data Vital Signs Vital Signs: Vital Signs - 24 hr 02/24/21 14:00 02/24/21 22:00 02/25/21 06:00 Temperature 98.0 F 97.1 F L 96.7 F L Pulse Rate 68 68 65 Respiratory Rate 18 18 18 Blood Pressure 132/78 147/57 H 149/68 H Pulse Oximetry 97 97 97 Intake/Output Intake/Output: Intake & Output 02/22/21 02/23/21 02/24/21 02/25/21 23:59 23:59 23:59 23:59 Intake Total 824 250 Output Total 1050 350 Balance -226 -100 Meds/Results Medications: Active Medications Generic Name Dose Route Start Last Admin Trade Name Freq PRN Reason Stop Dose Admin Acetaminophen 650 mg 02/23/21 17:14 02/24/21 20:19 Acetaminophen 325 Mg Tablet PO 650 mg Q4H PRN Administration Mild Pain (1-3) or Fever Hydrocodone Bitart/Acetaminophen 1 tab 02/23/21 17:14 02/25/21 04:32 Hydrocodone/Acetaminophen (*Crx) 5-325 Mg Tablet PO 1 tab Q4H PRN Administration Pain Rated 4-6 Amlodipine Besylate 5 mg 02/24/21 09:00 02/24/21 09:27 Amlodipine Besylate 5 Mg Tablet BY MOUTH 5 mg DAILY [facility] Administration Calcium Carbonate 500 mg 02/24/21 09:00 02/24/21 16:31 Calcium/Vitamin D 500 Mg Tablet P
[2021-02-25] MEDS: amLODIPine BESYLATE 5 MG TABLET BY MOUTH (08:30)
[2021-02-25] MEDS: VALSARTAN 160 MG TABLET PO (08:30)
[2021-02-25] MEDS: MULTIVITAMINS /C LUTEIN (CENTRUM SILVER) TABLET *BKC 1 TAB PO (08:30)
[2021-02-25] MEDS: PANTOPRAZOLE 40 MG TABLET PO (08:31)
--- NOTE | 2021-02-25 09:17 | PCPTNOTE ---
Assisted pt back to bed. Instructed in WBAT RLE w/ walker.
--- NOTE | 2021-02-25 11:44 | PM.DS ---
DS: Admitting Diagnosis Admitting Diagnosis Admitting Diagnosis: intractable hip pain DS: Discharge Diagnosis Discharge Diagnosis (1) Acute hip pain: Code(s): M25.559 - Pain in unspecified hip Status: Acute Assessment and Plan: History of right hip pain for a few weeks acutely worsened after a mechanical fall when she was standing up from a seated position. -XR shows no acute fractures -MRI revealed no fracture, moderate osteoarthritis, small bilateral hip joint effusions, partial tears of the gluteus minimus tendons bilaterally and moderate bilateral trochanteric bursitis -pain minimal the day of discharge -ortho recommends outpatient PT and follow-up -patient has a walker at home that she can use as needed and did well with physical therapy (2) HTN (hypertension), malignant: Code(s): I10 - Essential (primary) hypertension Status: Chronic Assessment and Plan: Last blood pressure 149/68 -continue home valsartan and amlodipine (3) GERD (gastroesophageal reflux disease): Code(s): K21.9 - Gastro-esophageal reflux disease without esophagitis Status: Acute Assessment and Plan: No acute symptoms, continue home omeprazole DS: Summary Hospital Course Hospital Course: 85-year-old female who was relatively healthy who presented emergency room for right hip pain that is acute on chronic. She states that she has sciatica and chronic hip pain and several days ago she fell off a stool and landed on that hip which intensified the pain he. She has been unable to walk independently which is a new for her. She denied numbness weakness or bowel/bladder symptoms. Vitals in the ER were temperature 36.9? C, pulse 82, respiratory rate 20, blood pressure 158/64, pulse ox 100 on room air. Initial hip pelvis x-ray showed no acute abnormality. Patient was admitted to the hospitalist service as observation since she was unable to ambulate initially. She was started on pain medications and an MRI was obtained. Please see above for those findings. The day of discharge she was able to walk with a walker with minimal pain. She saw orthopedic surgeon, Dr. Rocha, who recommended outpatient physical therapy and to follow-up with her outpatient. At this time, she denied needing a steroid injection as the pain was almost improved. Patient was educated about the worrisome signs and symptoms to come back to emergency room for and was discharge in stable condition. She did have a bit of leukocytosis which I do not suspect infection--she had no cough, shortness of breath, dysuria, or any complaints. Could be due to recent fall. I do recommend a repeat CBC in [address] Hannah and let him know about this follow-up and he agreed to follow her. Status at Discharge Functional status at discharge: uses cane/walker Overall status at discharge: patient is progressing back to baseline Time Spent with Patient Time attestation: Total time spent providing and/or coordinating discharge services:36 min Time spent: Greater than 30 minutes Exam Narrative: Exam Narrative: General: Well developed well nourished patient in NAD HEENT: normocephalic Neck: supple Neuro: Alert and oriented x4 CV:RRR Resp:CTA Abd: Soft, non distended. No pain to palpation. Positive bowel sounds Extremities: No swelling, erythema, or pain to palpation to either hip. DS: Data Data Completed and Pending Labs on day of discharge: Labs from last 24 hours 02/25/21 02/25/21 05:56 05:56 WBC 15.7 H RBC 4.28 Hgb 13.6 Hct 39.5 MCV 92.3 MCH 31.8 MCHC 34.4 RDW 13.8 Plt Count 373 MPV 9.1 Immature Gran % (Auto) 0.4 Neut % (Auto) 82.5 H Lymph % (Auto) 10.0 L Isabela % (Auto) 6.4 Eos % (Auto) 0.5 Baso % (Auto) 0.2 Lymph # (Auto) 1.57 Isabela # (Auto) 1.0 H Eos # (Auto) 0.1 Baso # (Auto) 0.0 Abs Immat Gran (auto) 0.07 H Absolute Neuts (auto) 12.9 H Absolute Nucleated RBC
[2021-02-25 13:12] LABS: Add Urine Microscopic? YES; Appearance Urine Cloudy (Clear); Bacteria Urine Trace /hpf; Bilirubin Urine Negative (Negative); Blood Urine Negative (Negative); Color Urine Yellow (Yellow); Glucose Urine UA Negative (Negative); Ketones Urine 1+ mg/dL (Negative); Leukocyte Esterase Ur Negative LEU/UL (Negative); Mucus Urine Rare /lpf; Nitrate Urine Negative (Negative); Protein Urine Negative (Negative); RBC Urine 0-2 /hpf (0-2); Specific Grav Ur 1.017 (1.001-1.035); Squamous Epithelial Cell Urine Occasional /hpf (Few); Urobilinogen Urine Negative mg/dL (<2.0); WBC Urine 0-3 /hpf
== END 2021-02-25 13:30 | disposition home or self-care (01) ==
LOC: ANHED 17:31 → ANH3MEDSUR 02-24 04:19
PROVIDERS: Nurse Practitioner; Physician Assistant; Admitting Provider Internal Medicine; Emergency Provider Emergency Medicine; PCP Internal Medicine; Visit Provider Physician Assistant
DX: M16.11 Unilateral primary osteoarthritis, right hip (principal); M25.551 Pain in right hip; M70.62 Trochanteric bursitis, left hip; M70.61 Trochanteric bursitis, right hip; I10 Essential (primary) hypertension; E03.9 Hypothyroidism, unspecified; W19.XXXA Unspecified fall, initial encounter; Z79.899 Other long term (current) drug therapy
CPT/HCPCS: 36415; 73502; 73721; 80048; 80053; 81001; 82306; 83735; 85025; 96360; 96361; 96372; 97161; 97165; 99285; A9270; G0378; J1885; J7120

== ENCOUNTER 2021-03-04 08:32 | Outpatient (CLI) | payer MEDICARE, BC, SELFPAY ==
[2021-03-04 09:05] LABS: Basophils Absolute Auto 0.1 K/mm3 (0.0-0.1); Basophils Percent Auto 0.7 % (0.2-1.2); Eosinophils Absolute Auto 0.2 K/mm3 (0-0.3); Eosinophils Percent Auto 2.1 % (0-4.4); Hematocrit 38.4 % (37.0-47.0); Hemoglobin 12.8 g/dL (12.0-15.0); Immature Granulocyte Absolute 0.05 K/mm3 (0.00-0.031); Immature Granulocyte Percent A 0.7 % (0-0.5); Lymphocytes Absolute Auto 1.88 K/mm3 (0.9-3.2); Mean Corpuscular HGB Conc 33.3 g/dl (32-36); Mean Corpuscular Hemoglobin 31.5 pg (26-34); Mean Corpuscular Volume 94.6 fl (80-100); Mean Platelet Volume 8.7 fl (7.4-10.4); Monocytes Absolute Auto 0.6 K/mm3 (0.1-0.6); Monocytes Percent Auto 7.8 % (2.6-8.5); Neutrophils Absolute Auto 4.8 K/mm3 (1.3-6.7); Neutrophils Percent Auto 63.7 % (45.5-73.1); Platelet Count Result 386 k/mm3 (150-375); Red Blood Count 4.06 M/mm3 (4.2-5.4); White Blood Count 7.5 K/mm3 (4.5-10.0)
== END 2021-03-04 08:33 | disposition home or self-care (01) ==
PROVIDERS: PCP Internal Medicine; Visit Provider Physician Assistant
DX: D72.829 Elevated white blood cell count, unspecified (principal)
CPT/HCPCS: 36415; 85025

== ENCOUNTER 2021-04-02 09:48 | Outpatient (CLI) | payer MEDICARE, BC, SELFPAY ==
--- NOTE | ~2021-04-02 | MM_ITS ---
EXAMINATION: MM screening vasquez BI w higinio HISTORY: Screening TECHNIQUE: Craniocaudal and mediolateral oblique 3-D tomosynthesis images were obtained and synthetic 2-D images were generated. CAD analysis was submitted and interpreted. COMPARISON: Comparison to multiple prior studies sequentially, with oldest reviewed study dated 12/12. BREAST PARENCHYMAL COMPOSITION: The breasts are heterogeneously dense, which may obscure small masses . FINDINGS: There is no evidence of suspicious mass, calcification, or architectural distortion to sugg est malignancy in either breast. There has been no suspicious interval change. IMPRESSION: 1. No mammographic evidence of malignancy. 2. Recommend routine screening mammography in one year. BI-RADS Category 1: Negative Reviewed, dictated and finalized at location A.
--- NOTE | ~2021-04-02 | DEXA_ITS ---
Bone Density Report Name: Alessandra Sharma Age: 85 Sex: Female Ethnicity: White Date of : 1935 Indication: osteopenia; monitoring treatment; height loss; hysterectomy; Referring Provider: ZAIN HILL Study: Bone densitometry was performed. Exam Date: April 02, 2021 Accession number: [id number] Bone Density: Region BMD T-score Z-score Classification AP Spine (L3, L4) 1.150 0.4 3.5 Normal Femoral Neck (Left) 0.574 -2.5 0.0 Osteoporosis Total Hip (Left) 0.794 -1.2 1.1 Osteopenia Total Hip Bilateral Avg 0.805 -1.2 1.2 Osteopenia Femoral Neck (Right) 0.584 -2.4 0.1 Osteopenia Total Hip (Right) 0.814 -1.1 1.3 Osteopenia World Health Organization criteria for BMD impression classify patients as: Normal (T-score at or above -1.0), Osteopenia (T-score between -1.0 and -2.5), or Osteoporosis (T-score at or below -2.5). 10-year Fracture Risk: FRAX not reported because: Some T-score for Spine Total or Hip Total or Femoral Neck at or below -2.5 Treated for osteoporosis Previous Exams: Region Exam Age BMD T-score BMD Change BMD Change Date g/cm2 vs Baseline vs Previous AP Spine(L3, L4) 04/02/2021 85 1.150 0.4 -0.020(-1.7%)# -0.030(-2.5%)# 12/01/2010 75 1.180 0.7 0.010(0.8%) 0.010(0.8%) 10/05/2007 71 1.170 0.6 Total Hip(Left) 04/02/2021 85 0.794 -1.2 0.029(3.8%)# 0.007(0.9%) 01/18/2019 83 0.787 -1.3 0.022(2.9%)# 0.024(3.2%) 12/14/2016 81 0.763 -1.5 -0.002(-0.3%)# 0.032(4.4%)* 12/10/2014 79 0.731 -1.7 -0.034(-4.4%)# -0.046(-5.9%)# 12/05/2012 77 0.777 -1.4 0.012(1.5%)# 0.051(7.0%)# 12/01/2010 75 0.726 -1.8 -0.040(-5.2%)* -0.040(-5.2%)* 10/05/2007 71 0.765 -1.4 Total Hip(Right) 04/02/2021 85 0.814 -1.1 0.023(2.9%)# 0.026(3.2%) 01/18/2019 83 0.788 -1.3 -0.003(-0.4%)# 0.045(6.1%)* 12/14/2016 81 0.743 -1.6 -0.048(-6.1%)# 0.019(2.6%) 12/10/2014 79 0.724 -1.8 -0.067(-8.5%)# -0.075(-9.4%)# 12/05/2012 77 0.799 -1.2 0.008(1.1%)# 0.045(5.9%)# 12/01/2010 75 0.755 -1.5 -0.036(-4.6%)* -0.036(-4.6%)* 10/05/2007 71 0.791 -1.2 *Denotes significance at 95% confidence level, LSC for AP Spine = 0.022 g/cm2, LSC for Total Hip = 0.027 g/cm2 Clinical Information Provided by Patient: Is being treated for osteoporosis Has used the following medications: Prolia (i.e. denosumab), Calcium Has the following medical conditions: Hysterectomy Patient maximum height was 59 Menopause Age: 49 No rosaa
== END 2021-04-02 09:49 | disposition home or self-care (01) ==
LOC: ANHIMG 09:49
PROVIDERS: PCP Internal Medicine; Visit Provider Internal Medicine
DX: Z12.31 Encounter for screening mammogram for malignant neoplasm of breast (principal); M81.0 Age-related osteoporosis without current pathological fracture; M85.851 Other specified disorders of bone density and structure, right thigh; M85.852 Other specified disorders of bone density and structure, left thigh
CPT/HCPCS: 77063; 77067; 77080

== ENCOUNTER 2021-04-11 08:41 | Outpatient (CLI) | payer MEDICARE, BC, SELFPAY ==
[2021-04-11 09:12] LABS: Alanine Aminotransferase 30 U/L (4-35); Albumin Level 4.5 g/dL (3.5-5.1); Alkaline Phosphatase 79 U/L (38-126); Anion Gap 7 mmol/L (8-16); Aspartate Amino Transferase 45 U/L (14-36); Bilirubin,Total 0.4 mg/dL (0.2-1.3); Blood Urea Nitrogen 12 mg/dL (7-17); Calcium 9.9 mg/dL (8.4-10.2); Carbon Dioxide 28 mmol/L (22-30); Chloride 104 mmol/L (98-107); Cholesterol 262 mg/dL (0-200); Estimated Glomerular Filt Rate > 60; Glucose 99 mg/dL (65-105); HDL Direct 88 mg/dL; Potassium 4.2 mmol/L (3.4-5.0); Sodium 139 mmol/L (137-145); Triglycerides 132 mg/dL (<150)
[2021-04-11 09:23] LABS: LDL Cholesterol Direct 94 mg/dL
[2021-04-11 09:43] LABS: Thyroid Stimulating Hormone 0.042 uIU/mL (0.465-4.680)
[2021-04-11 10:15] LABS: Free T4 Free Thyroxine 1.19 ng/mL (0.78-2.19); Vitamin D 25 Hydroxy 63.2 ng/mL
== END 2021-04-11 08:42 | disposition home or self-care (01) ==
PROVIDERS: PCP Internal Medicine; Visit Provider Internal Medicine
DX: E05.90 Thyrotoxicosis, unspecified without thyrotoxic crisis or storm (principal); I10 Essential (primary) hypertension; Z90.49 Acquired absence of other specified parts of digestive tract; E78.5 Hyperlipidemia, unspecified; E55.9 Vitamin D deficiency, unspecified
CPT/HCPCS: 36415; 80053; 80061; 82306; 84439; 84443

== ENCOUNTER 2021-04-15 08:30 | Outpatient (RCR) | payer MEDICARE, BC, SELFPAY ==
--- NOTE | 2021-03-12 11:16 | PTOPEVAL ---
Thank you for referring Alessandra Sharma to [facility].? The patient is scheduled to be seen for therapy? 2 x/week for 5 weeks. Please review, sign, date and return this plan of care AFUA. I agree with and certify that the following plan of care is medically necessary. 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 She was given medication, but no relief. Subjective Information She reports limitations with Query Text:As Reported By Patient/ standing, walking, negotiating Family steps and performing daily chores. She has increased pain with steps when leading with right leg. Reports difficulty with community walking for shopping. C/o throbbing pain on right groin, lateral/posterior hip region. Does not use a cane or walker. Does not perform a walking or exercise program. She spends most of her time sitting due to pain. Pain Assessment Self Report Pain Assessment Right Hip(s) Reported Pain Level 8 Pain Description Aching,Throbbing Pain Frequency Acute,Continuous Lowest Pain Intensity 6 Greatest Pain Intensity 10 Pain Aggravating Factors Exercise/Activity,Stair Climbing,Walking,Weight Bearing/Standing Pain Score Lower Extremity Muscle Strength Testing Hip Strength Right Hip Flexion Strength 3 Fair Hip Extension Strength 2+ Poor + Hip Abduction Strength 2 Poor Hip Adduction Strength 2+ Poor + Left Hip Flexion Strength 4- Good - Hip Extension Strength 3 Fair
--- NOTE | 2021-04-15 09:13 | PTOPEVAL ---
Thank you for referring Alessandra Sharma to [facility].? Rashad Edna has attended 10 therapy visits to address LE impairments. As result of skilled therapy services she demonstrates progress with leg strength, improved pain, improved functional mobility with walking on level surfaces and steps. She has been provided a HEP, but is not consistent with performing. She has partially achieved her therapy goals at this time. Will DC skilled therapy services a this time with recommendation to continue with home program. Please review, sign, date and return this discharge summary AFUA. I agree with and certify that the following plan of care is medically necessary. Referring Physician Date Attending Provider: JONO Billings Referring Provider: JONO Billings Physical Therapy Discharge Note Diagnosis right hip trochanteric bursitis Onset 02/19/21 Additional Evaluation Detail She went to hospital 02/23/21 due to progression of pain. She was given medication, but no relief. Subjective Information She reports continued Query Text:As Reported By Patient/ limitations with prolonged Family standing, distance walking, negotiating steps and performing daily chores. She is able to get in/out of the car better. She spends most of her day watching TV. Reports improved ability to community walking for shopping. States the pain is intermittent with non- consistent activities to increase the pain. She is not using ice/heat on her hip at home. She does take over the counter medication as needed. She is performing HEP 3-4x/wk. C/o throbbing pain on right lateral hip region only. Pain Assessment Self Report Pain Assessment Right Hip(s) Reported Pain Level 4 Pain Description Soreness,Throbbing Pain Frequency Chronic,Continuous Lowest Pain Intensity 4 Greatest Pain Intensity 9 Pain Aggravating Factors None Lower Extremity Range of Motion General Lower Extremity Range of Motion Gross Lower Extremity Range of Motion no pain with hip motion in all Comments directions Lower Extremity Muscle Strength Testing Hip Strength Right Hip Flexion Strength 3+ Fair + Hip Extension Strength 3- Fair - Hip Abduction Strength 3- Fair - Hip Adduction Strength
== END 2021-04-15 11:45 | disposition home or self-care (01) ==
LOC: ANHPT 08:30
PROVIDERS: PCP Internal Medicine; Referring Provider Nurse Practitioner Family; Visit Provider Nurse Practitioner Family
DX: M70.61 Trochanteric bursitis, right hip (principal)
CPT/HCPCS: 97014; 97110; 97140; 97162; G0283

== ENCOUNTER 2021-04-22 09:08 | Outpatient (CLI) | payer MEDICARE, BC, SELFPAY ==
--- NOTE | ~2021-04-22 | CT_ITS ---
EXAMINATION: CT abdomen w con DATE: 04/22/2021 09:54 INDICATION: Abdominal pain TECHNIQUE: Computed tomography (CT) of the abdomen and pelvis was performed with 100 cc Omnipaque 350 intravenous contrast. The dose-length product was 129.19 mGy-cm. Automated exposure control and iter ative reconstruction technique were employed. COMPARISON: CT dated 05/02/2020. FINDINGS: There is dependent atelectasis. Heart size is normal. No significant pleural or pericardial effusion. No lymphadenopathy. No evidence for aortic aneurysm. Small hiatal hernia. Fatty infiltration of the liver. Status post cholecystectomy. The spleen, pancreas, adrenal glands ar e unremarkable. There are small subcentimeter hypodensities of the kidneys bilaterally. Severe lumbar spondylosis with levoscoliosis. No acute osseous abnormality. There is thickening of the ascending colon and transverse colon, suspicious for colitis. No obstructi on. Colonic diverticulosis without evidence for diverticulitis. There are multiple small fat-containi ng ventral abdominal wall hernias. IMPRESSION: 1. Mild thickening of the ascending and transverse colon, suspicious for colitis, most likely infecti ous or inflammatory. 2: Multiple small upper abdominal ventral hernias containing fat. 3: Hepatic steatosis. Reviewed, dictated and finalized at location B. IMPRESSION: 1. Mild thickening of the ascending and transverse colon, suspicious for coliti s, most likely infectious or inflammatory. 2: Multiple small upper abdominal ventral hernias containing fat. 3: Hepatic steatosis.
== END 2021-04-22 09:09 | disposition home or self-care (01) ==
PROVIDERS: PCP Internal Medicine; Visit Provider Nurse Practitioner
DX: R10.9 Unspecified abdominal pain (principal); R74.8 Abnormal levels of other serum enzymes; K76.0 Fatty (change of) liver, not elsewhere classified; K43.9 Ventral hernia without obstruction or gangrene
CPT/HCPCS: 74160; Q9967

== ENCOUNTER 2021-06-13 01:39 | Day surgery (SDC) | payer MEDICARE, BC, SELFPAY ==
[2021-05-28 15:02] VITALS: BMI 26.2
[2021-06-13 09:40] VITALS: BP 140/84; PULSE 103; RESP 16; TEMP 36.3; O2SAT 95
[2021-06-13] MEDS: LACTATED RINGERS 1,000 ML 150 ML IV CONT (09:42)
--- NOTE | 2021-06-13 10:07 | WPDANESEPPF ---
Anes - Initial Pre Proc Eval Procedure: Operation Date: 06/13/21 10:30 Proposed Procedures p Colonoscopy - Baldev Edwards MD Date/Time: 06/13/21 10:07 Surgeon: aBldev Edwards MD Pre Op Diagnosis: colitis Patient Data Age: 85 Gender: F Height: 1.42 m Weight: 52 kg Last Vital Signs Temp 97.4 F L 06/13/21 09:40 Pulse 103 H 06/13/21 09:40 Resp 16 06/13/21 09:40 BP 140/84 06/13/21 09:40 Pulse Ox 95 06/13/21 09:40 Allergies Allergy/AdvReac Type Severity Reaction Status Date / Time No Known Allergies Allergy Verified 06/13/21 09:39 Home Medications Medication Instructions Recorded Confirmed Type Centrum Silver 1 tablet PO DAILY 12/07/19 06/13/21 History diphenhydramine-acetaminophen 1 tablet PO HS PRN 12/07/19 06/13/21 History [Tylenol PM Extra Strength] denosumab 60 mg/mL subcutaneous 60 mg SUB-Q [id number] #1 ml 03/22/20 06/13/21 Rx syringe valsartan 160 mg tablet 160 mg PO BID #180 tablet 01/17/21 06/13/21 Rx latanoprost 1 drp EACH EYE HS 02/23/21 06/13/21 History amlodipine 5 mg PO BID 04/28/21 06/13/21 History calcium 1,200 mg PO DAILY 04/28/21 06/13/21 History ketotifen fumarate [Refresh Eye 1 drp OPHTHALMIC (EYE) BID 04/28/21 06/13/21 History Itch Relief] multivitamin-calcium carb-iron 2 tablet PO DAILY 04/28/21 06/13/21 History [Nature's Bounty 1] omega-3 fatty acids [[place] 3 Fish 2,000 mg PO DAILY 04/28/21 06/13/21 History Oil] vit C,G-Ce-chhzk-lutein-zeaxan 1 tablet PO BID 04/28/21 06/13/21 History [PreserVision AREDS-2] omeprazole 20 mg PO PRN PRN 05/28/21 06/13/21 History Patient hx anesthesia problems: none Family hx anesthesia problems: none PMFSH Past Medical History Medical History Greater trochanteric bursitis of right hip HTN (hypertension), malignant Hyperthyroidism Osteoporosis Overweight Right hip pain Screening for breast cancer Surgical History Surgical History H/O colonoscopy with polypectomy Hx laparoscopic cholecystectomy Hx of cataract surgery Hx of hysterectomy Hx of resection of liver Family History Family History Sibling Family history of chronic obstructive pulmonary disease Family history of lung cancer Family history of coronary artery disease Patient's brother is Father Family history of chronic obstructive pulmonary disease, Onset Age: 67 Patient's father is Mother Family history of heart disease in male family member before age 55, Onset Age: 72 Patient's mother is Family history of cardiovascular disease, Onset Age: 72 Other Family history of malignant neoplasm Social History Social History Social History: The patient is and lives with his significant other a rather he lives with her. Her niece is the durable power attorney general for healthcare. The patient is a full code. The patient does not have any children. She worked for an insurance company. The patient desires to be a full code but does not want to live in a vegetative state. The patient has dogs at home as well. The patient has never smoked. She does not use any alcohol or illicit drugs. Smoking status: Never smoker Second hand tobacco smoke exposure: No Alcohol intake: never Substance use: never Substance use type: does not use Living arrangements: with friend(s) Gender identity (if verbalized by the patient): Female Spiritual care concerns: No Anes - Eval Final PreProcedure Day of Procedure 06/13/21 10:07 Patient weight: normal Heart: regular rate and rhythm Lungs: clear to auscultation Airway: Mallampati scale class II Neurological: alert and oriented Last oral intake: >/= 8 hours ASA classification: III Emergent: no Anesthetic silvino
--- NOTE | 2021-06-13 10:29 | PM.HPGS ---
History of Present Illness History of Present Illness Consent: Risks, benefits, and alternatives have been discussed and questions answered. Patient agrees to proceed with procedure. Chief complaint: colitis Narrative: Alessandra Sharma is a 85 year old female who had abdominal pain, CT scan showed right sided colitis, no pain now. Last colonoscopy 11/2019 with small polyp and diverticulosis. Review of Systems Constitutional: Constitutional: Denies headache(s) and Denies weakness Eyes: Eyes: Denies blurry vision ENT: Reports Normal hearing present, Denies headache(s) and Denies neck pain Cardiovascular: Cardiovascular: Denies chest pain and Denies dyspnea Respiratory: Respiratory: Denies dyspnea Gastrointestinal: Gastrointestinal: Reports no additional gastrointestinal complaints Genitourinary: Genitourinary: Denies dysuria Musculoskeletal: Musculoskeletal: Denies neck pain Integumentary/Breasts: Skin/Breast: Denies dry skin Neurologic: Reports Normal hearing present, Denies headache(s) and Denies weakness Psychiatric: Psychiatric: Denies anxiety Endocrine: Endocrine: Denies change in body appearance Hematologic/Lymphatic: Hematologic/Lymphatic: Denies easy bleeding Allergic/Immunologic: Allergic/Immunologic: Denies urticaria PMFSH Past Medical History Medical History Greater trochanteric bursitis of right hip HTN (hypertension), malignant Hyperthyroidism Osteoporosis Overweight Right hip pain Screening for breast cancer Surgical History Surgical History H/O colonoscopy with polypectomy Hx laparoscopic cholecystectomy Hx of cataract surgery Hx of hysterectomy Hx of resection of liver Family History Family History Sibling Family history of chronic obstructive pulmonary disease Family history of lung cancer Family history of coronary artery disease Patient's brother is Father Family history of chronic obstructive pulmonary disease, Onset Age: 67 Patient's father is Mother Family history of heart disease in male family member before age 55, Onset Age: 72 Patient's mother is Family history of cardiovascular disease, Onset Age: 72 Other Family history of malignant neoplasm Social History Social History Social History: The patient is and lives with his significant other a rather he lives with her. Her niece is the durable power billboard poster helper for healthcare. The patient is a full code. The patient does not have any children. She worked for an insurance company. The patient desires to be a full code but does not want to live in a vegetative state. The patient has dogs at home as well. The patient has never smoked. She does not use any alcohol or illicit drugs. Smoking status: Never smoker Second hand tobacco smoke exposure: No Alcohol intake: never Substance use: never Substance use type: does not use Living arrangements: with friend(s) Gender identity (if verbalized by the patient): Female Spiritual care concerns: No Meds Home Medications and Allergies Home Medications Medication Instructions Recorded Confirmed Type Centrum Silver 1 tablet PO DAILY 12/07/19 06/13/21 History diphenhydramine-acetaminophen 1 tablet PO HS PRN 12/07/19 06/13/21 History [Tylenol PM Extra Strength] denosumab 60 mg/mL subcutaneous 60 mg SUB-Q [id number] #1 ml 03/22/20 06/13/21 Rx syringe valsartan 160 mg tablet 160 mg PO BID #180 tablet 01/17/21 06/13/21 Rx latanoprost 1 drp EACH EYE HS 02/23/21 06/13/21 History amlodipine 5 mg PO BID 04/28/21 06/13/21 History calcium 1,200 mg PO DAILY 04/28/21 06/13/21 History ketotifen fumarate [Refresh Eye 1 drp OPHTHALMIC (EYE) BID 04/28/21 06/13/21 History Itch Relief] multivitamin-calcium
[2021-06-13 10:51] VITALS: BP 98/54; PULSE 86; RESP 19; O2SAT 99
[2021-06-13 11:01] VITALS: BP 112/66; PULSE 77; RESP 21; O2SAT 100
[2021-06-13 11:11] VITALS: BP 119/60; PULSE 78; RESP 21; O2SAT 100
== END 2021-06-13 11:14 | disposition home or self-care (01) ==
PROVIDERS: PCP Internal Medicine; Visit Provider Internal Medicine Gastroenterology
PROC: 0DJD8ZZ Inspection of Lower Intestinal Tract, Via Natural or Artificial Opening Endoscopic (ICD-10-PCS; CPT 45378; principal; 2021-06-13 10:30)
DX: K57.30 Diverticulosis of large intestine without perforation or abscess without bleeding (principal); K64.8 Other hemorrhoids; Z87.19 Personal history of other diseases of the digestive system; M81.0 Age-related osteoporosis without current pathological fracture; I10 Essential (primary) hypertension; E03.9 Hypothyroidism, unspecified
CPT/HCPCS: 45378; J2704; J7120

== ENCOUNTER → 2021-09-30 08:55 | Outpatient (CLI) | payer MEDICARE, BC, SELFPAY ==
[2021-09-30 11:16] LABS: Influenza Control Positive
[2021-09-30 19:34] LABS: SARS-CoV-2 RNA PCR Positive
== END ==
PROVIDERS: PCP Internal Medicine; Visit Provider Internal Medicine
DX: U07.1 COVID-19 (principal)
CPT/HCPCS: 87804; C9803; U0003; U0005

== ENCOUNTER 2021-10-22 08:11 | Outpatient (CLI) | payer MEDICARE, BC, SELFPAY ==
[2021-10-22 09:03] LABS: Alanine Aminotransferase 50 U/L (4-35); Albumin Level 4.6 g/dL (3.5-5.1); Alkaline Phosphatase 81 U/L (38-126); Anion Gap 8 mmol/L (8-16); Aspartate Amino Transferase 39 U/L (14-36); Bilirubin,Total 0.6 mg/dL (0.2-1.3); Blood Urea Nitrogen 13 mg/dL (7-17); Calcium 9.7 mg/dL (8.4-10.2); Carbon Dioxide 26 mmol/L (22-30); Chloride 98 mmol/L (98-107); Cholesterol 259 mg/dL (0-200); Estimated Glomerular Filt Rate > 60; Glucose 100 mg/dL (65-110); HDL Direct 89 mg/dL; Potassium 3.5 mmol/L (3.4-5.0); Sodium 132 mmol/L (137-145); Triglycerides 152 mg/dL (<150)
[2021-10-22 09:15] LABS: LDL Cholesterol Direct 121 mg/dL
[2021-10-22 09:31] LABS: Thyroid Stimulating Hormone < 0.015 uIU/mL (0.465-4.680)
[2021-10-22 09:46] LABS: Vitamin D 25 Hydroxy 62.5 ng/mL
== END 2021-10-22 08:12 | disposition home or self-care (01) ==
PROVIDERS: PCP Internal Medicine; Visit Provider Nurse Practitioner
DX: E05.90 Thyrotoxicosis, unspecified without thyrotoxic crisis or storm (principal); E78.2 Mixed hyperlipidemia; E55.9 Vitamin D deficiency, unspecified
CPT/HCPCS: 36415; 80053; 80061; 82306; 84443

== ENCOUNTER 2021-12-31 09:08 | Outpatient (CLI) | payer MEDICARE, BC, SELFPAY ==
[2021-12-31 10:17] LABS: Free T4 Free Thyroxine 1.15 ng/mL (0.78-2.19)
[2021-12-31 11:02] LABS: Thyroid Stimulating Hormone 0.099 uIU/mL (0.465-4.680)
== END 2021-12-31 09:09 | disposition home or self-care (01) ==
LOC: ANHLAB 09:10
PROVIDERS: PCP Internal Medicine; Visit Provider Internal Medicine
DX: E05.90 Thyrotoxicosis, unspecified without thyrotoxic crisis or storm (principal)
CPT/HCPCS: 36415; 84439; 84443

== ENCOUNTER 2022-04-06 10:18 | Outpatient (CLI) | payer MEDICARE, BC, SELFPAY ==
--- NOTE | ~2022-04-06 | MM_ITS ---
EXAMINATION: MM screening vasquez BI w higinio HISTORY: Screening mammogram TECHNIQUE: Craniocaudal and mediolateral oblique 3-D tomosynthesis images were obtained and synthetic 2-D images were generated. CAD analysis was submitted and interpreted. COMPARISON: 04/02/2021,, 01/18/2019 bilateral screening mammogram examinations BREAST PARENCHYMAL COMPOSITION: The breasts are heterogeneously dense, which may obscure small masses . FINDINGS: There is s fibroglandular asymmetry; history of 2 prior benign right breast biopsies. Approximately 6 mm spiculated opacity in the anterior upper right breast on MLO view (MLO Tomosynthes is image 25/55). Diagnostic right mammogram is recommended, with ultrasound if required. There are oc casional scattered bilateral benign calcifications. There is no evidence of suspicious mass, calcific ation, or architectural distortion to suggest malignancy in either breast. There has been no suspicio us interval change. IMPRESSION: 1. 6 mm circular opacity in anterior upper right breast on MLO view 2. Diagnostic right mammogram is recommended, with ultrasound if required BI-RADS Category 0: Incomplete: Needs additional imaging evaluation. Reviewed, dictated and finalized at location A.
== END 2022-04-06 10:19 | disposition home or self-care (01) ==
LOC: ANHIMG 10:19
PROVIDERS: PCP Internal Medicine; Visit Provider Internal Medicine
DX: Z12.31 Encounter for screening mammogram for malignant neoplasm of breast (principal); R92.8 Other abnormal and inconclusive findings on diagnostic imaging of breast
CPT/HCPCS: 77063; 77067

== ENCOUNTER 2022-04-22 12:10 | Outpatient (CLI) | payer MEDICARE, BC, SELFPAY ==
--- NOTE | ~2022-04-22 | MM_ITS ---
EXAMINATION: MM diagnostic vasquez RT w higinio HISTORY: Possible left breast mass on screening mammogram TECHNIQUE: Additional 3-D tomosynthesis images of the left breast were performed and synthetic 2-D im ages were generated. CAD analysis was submitted and interpreted. COMPARISON: 04/06/2022, 04/02/2021, 03/04/2020, 01/18/2019 FINDINGS: There is a return to baseline fibroglandular appearance with spot compression of the right breast in the area questioned on screening mammogram. IMPRESSION: 1. No mammographic evidence of malignancy. 2. Recommend annual screening mammography while the patient remains in good health. BI-RADS Category 1: Negative Reviewed, dictated and finalized at location A. IMPRESSION: 1. No mammographic evidence of malignancy. 2. Recommend annual screening mammography while the patient remains in good hea lth. BI-RADS Category 1: Negative
== END 2022-04-22 12:11 | disposition home or self-care (01) ==
LOC: ANHIMG 12:11
PROVIDERS: PCP Internal Medicine; Visit Provider Internal Medicine
DX: R92.8 Other abnormal and inconclusive findings on diagnostic imaging of breast (principal)
CPT/HCPCS: 77061; 77065; G0279

== ENCOUNTER 2022-04-29 07:32 | Outpatient (CLI) | payer MEDICARE, BC, SELFPAY ==
[2022-04-29 08:06] LABS: Alanine Aminotransferase 26 U/L (6-35); Albumin Level 4.6 g/dL (3.5-5.1); Alkaline Phosphatase 80 U/L (38-126); Anion Gap 9 mmol/L (8-16); Aspartate Amino Transferase 32 U/L (14-36); Bilirubin,Total 0.3 mg/dL (0.2-1.3); Blood Urea Nitrogen 12 mg/dL (7-17); Calcium 8.9 mg/dL (8.4-10.2); Carbon Dioxide 28 mmol/L (22-30); Chloride 99 mmol/L (98-107); Estimated Glomerular Filt Rate > 60; Glucose 97 mg/dL (65-110); Potassium 4.2 mmol/L (3.4-5.0); Sodium 136 mmol/L (137-145)
[2022-04-29 08:36] LABS: Vitamin D 25 Hydroxy 59.2 ng/mL
== END 2022-04-29 07:33 | disposition home or self-care (01) ==
LOC: ANHLAB 07:34
PROVIDERS: PCP Internal Medicine; Visit Provider Internal Medicine
DX: R74.8 Abnormal levels of other serum enzymes (principal); I10 Essential (primary) hypertension; E55.9 Vitamin D deficiency, unspecified; E05.90 Thyrotoxicosis, unspecified without thyrotoxic crisis or storm
CPT/HCPCS: 36415; 80053; 82306; 84443

== ENCOUNTER 2022-11-30 08:25 | Outpatient (CLI) | payer MEDICARE, BC, SELFPAY ==
[2022-11-30 09:28] LABS: Alanine Aminotransferase 31 U/L (6-35); Albumin Level 4.5 g/dL (3.5-5.1); Alkaline Phosphatase 93 U/L (38-126); Anion Gap 4 mmol/L (8-16); Aspartate Amino Transferase 29 U/L (14-36); Bilirubin,Total 0.4 mg/dL (0.2-1.3); Blood Urea Nitrogen 15 mg/dL (7-17); Carbon Dioxide 29 mmol/L (22-30); Chloride 98 mmol/L (98-107); Cholesterol 250 mg/dL (0-200); Estimated Glomerular Filt Rate > 60; Glucose 103 mg/dL (65-110); HDL Direct 69 mg/dL; Potassium 3.6 mmol/L (3.4-5.0); Sodium 131 mmol/L (137-145); Triglycerides 171 mg/dL (<150)
[2022-11-30 09:38] LABS: LDL Cholesterol Direct 103 mg/dL
[2022-11-30 10:55] LABS: Vitamin D 25 Hydroxy 53.9 ng/mL
== END 2022-11-30 08:26 | disposition home or self-care (01) ==
PROVIDERS: PCP Internal Medicine; Visit Provider Nurse Practitioner
DX: E78.2 Mixed hyperlipidemia (principal); E05.90 Thyrotoxicosis, unspecified without thyrotoxic crisis or storm; E55.9 Vitamin D deficiency, unspecified
CPT/HCPCS: 36415; 80053; 80061; 82306; 84443

== ENCOUNTER 2023-01-22 08:35 | Observation (INO) | payer MEDICARE, BC, SELFPAY ==
[2023-01-22] VITALS (29 sets, daily range): BP systolic 119–153; BP diastolic 59–89; PULSE 73–104; RESP 12–25; TEMP 36.3–36.7; O2SAT 95–100; BMI 26.6
--- NOTE | ~2023-01-22 | CT_ITS ---
Non-contrast Head CT History: Left-sided paresthesias COMPARISON: 03/29/2019 Technique: Axial non-contrast imaging of the brain was performed. Dose reduction technique was used on this scan by utilizing automated exposure control and iterative reconstruction technique. The dose -length product (DLP) was 605.33 mGy-cm. Findings: There is no evidence of intracranial hemorrhage, mass lesion, or acute infarct. Brain par enchyma appears normal. The ventricles and subarachnoid spaces are normal in size. The calvarium ap pears normal. The visualized paranasal sinuses and mastoid air cells are clear. Impression: No significant abnormality seen. Reviewed, dictated and finalized at location . AL MERCHANDISING DIRECTOR Impression: No significant abnormality seen.
--- NOTE | ~2023-01-22 | CT_ITS ---
EXAMINATION: CTA brain carotid DATE: 01/22/2023 09:57 INDICATION: Left arm and left face numbness. TECHNIQUE: Computed tomographic angiography (CTA) of the head was performed with 100 mL Omnipaque-350 intravenous contrast. CTA of the neck was performed with intravenous contrast. Automated exposure co ntrol and iterative reconstruction technique were employed. The dose-length product was 818.32 mGy-cm . Maximum intensity projection and volume rendered 3D-reconstructions were created by the [employer] t on a separate workstation. COMPARISON: Head CT 01/22/2023, brain MRI 03/30/2019, thyroid ultrasound 10/26/2019 FINDINGS: HEAD CTA: There is no intracranial hemorrhage, acute infarction, or abnormal intracranial mass lesion . The ventricles are normal in size. There are likely changes of ocular lens replacement surgeries. The paranasal sinuses are clear. The mastoid air cells are normal. The vertebral arteries are codomin ant. There is no significant stenosis of basilar artery or the posterior cerebral arteries. The poste rior communicating arteries are normal. There is no significant stenosis of the intracranial internal carotid arteries or anterior or middle cerebral arteries. Anterior communicating artery is normal. T here is no aneurysm. NECK CTA: The lungs demonstrate mosaic attenuation, likely small airways disease. There are a few 2-3 mm nodules in the lungs, likely benign. There are nodules in the thyroid measuring up to 2.9 cm. The re are no pathologically enlarged lymph nodes. There is no significant stenosis of the vertebral juvenal cecily. There is plaque in the proximal internal carotid arteries. There is 0% stenosis of the proximal right internal carotid artery relative to normal distal artery lumen diameter (NASCET criteria). The re is 0% stenosis of the proximal left internal carotid artery relative to normal distal artery lumen diameter. There is severe cervical spondylosis. IMPRESSION: 1. Normal brain. No aneurysm or significant intracranial arterial stenosis. 2. 0% stenosis of the proximal internal carotid arteries relative to normal distal artery lumen diame ters (NASCET criteria). 3. Chronic multinodular goiter, stable from 10/26/19. Reviewed, dictated and finalized at location A. PING OPERATOR IMPRESSION: 1. Normal brain. No aneurysm or significant intracranial arterial stenosis. 2. 0% stenosis of the proximal internal carotid arteries relative to normal dis marcy artery lumen diameters (NASCET criteria). 3. Chronic multinodular goiter, stable from 10/26/19.
--- NOTE | ~2023-01-22 | MR_ITS ---
EXAMINATION: MR brain/brain stem wo/w con DATE: 01/22/2023 17:43 INDICATION: Stroke with transient ischemic episode. TECHNIQUE: Magnetic resonance imaging (MRI) of the brain and brainstem was performed without and with 10 mL Multihance intravenous contrast. Sequences included sagittal and axial T1-weighted SE, axial d iffusion-weighted FS SE, axial T2*-weighted GRE, axial 3D SWAN, axial T2-weighted FLAIR, and axial T2 -weighted FSE. Postcontrast axial and coronal T1-weighted SE was obtained. Apparent diffusion coeffic ient (ADC) maps were created. COMPARISON: Brain MR dated 03/30/2019 FINDINGS: There are no areas of restricted diffusion to suggest acute infarction. No intracranial hemorrhage or abnormal intracranial mass lesion. There are a few scattered small foci of nonspecific increased T2- weighted signal intensity in the cerebral white matter which is within normal limits for age. There a re no intraparenchymal signal abnormalities seen on the other pulse sequences. The ventricles are sym metric and normal in size. There are no abnormal extra-axial fluid collections. Flow voids are seen i n the cerebral arteries on the T2-weighted sequences consistent with their expected patency. Changes of bilateral intraocular lens replacement. Mild mucosal thickening the bilateral anterior ethmoid sin uses. Visualized orbits and soft tissues are unremarkable. There are no areas of abnormal enhancement on the post contrast images. IMPRESSION: 1. Mild scattered white matter T2 hyperintensity which is within normal limits for age and likely seq uela of chronic small vessel ischemic disease. No other acute intracranial process or abnormally enha ncing brain lesions. Reviewed, dictated and finalized at location A. LOPMENT SPECIALIST IMPRESSION: 1. Mild scattered white matter T2 hyperintensity which is within normal limits for age and likely sequela of chronic small vessel ischemic disease. No other a cute intracranial process or abnormally enhancing brain lesions.
--- NOTE | 2023-01-22 08:51 | ECG_ITS ---
Measurements Intervals [place] Rate: 82 P: 71 VT: 190 QRS: 9 QRSD: 80 T: 29 QT: 382 QTc: 449 Interpretive Statements SINUS RHYTHM ATRIAL PREMATURE COMPLEXES BASELINE ARTIFACT- I, II, III, AVR, AVL, AVF, V3 BORDERLINE ECG COMPARED TO ECG 03/29/2019 15:48:33 NO SIGNIFICANT CHANGES Electronically Signed On 01-22-2023 10:18:02 [employer] TRUCK DISPATCHER by Terell Zafar D.O.
--- NOTE | 2023-01-22 08:52 | ED.NEUROSD ---
HPI - Neuro Symptoms/Deficit General Chief Complaint: Suspected CVA Stated Complaint: confusion/hand weakness Time Seen by Provider: 01/22/23 08:51 History of Present Illness HPI Narrative: 87-year-old female presented to the emergency department for evaluation of decreased sensation over the left hand. Patient states when she woke up this morning she was having increased difficulty using the left hand. Patient states that her left hand felt like a skeleton hand patient reports that she did have difficulty putting on her hearing aids. Upon arrival to the emergency department patient states that her symptoms have improved. Patient denies any associated weakness with this. Patient is a poor historian but states she does feel like her symptoms are improved. Related Data Home Medications Medication Instructions Recorded Confirmed diphenhydramine 25 1 tablet PO HS PRN Insomnia 12/07/19 01/22/23 mg-acetaminophen 500 mg tablet (Tylenol PM Extra Strength) msosmgym-bve-obtwa acid 0.4 1 tablet PO DAILY 12/07/19 01/22/23 mg-lycopene 300 mcg-lutein 250 mcg tablet (Centrum Silver) latanoprost 0.005 % eye drops 1 drp EACH EYE HS 02/23/21 01/22/23 calcium 600 mg capsule 1,200 mg PO DAILY 04/28/21 01/22/23 ketotifen fumarate 0.025 % (0.035 1 drp ophthalmic (eye) BID 04/28/21 01/22/23 %) eye drops vit C 250 mg-vit E 90 mg-zinc 40 1 tablet PO BID 04/28/21 01/22/23 mg-copper 1 mc-fnmbse-aczsdn capsule (PreserVision AREDS-2) Allergies Allergy/AdvReac Type Severity Reaction Status Date / Time No Known Allergies Allergy Verified 12/03/22 09:46 Review of Systems Review of Systems: CONSTITUTIONAL: Denies fever, chills, or sweats. EYES: Denies visual changes, redness, or discharge. ENT: Denies rhinorrhea, congestion, sore throat, or otalgia. CARDIOVASCULAR: Denies chest pain, palpitations, or edema. RESPIRATORY: Denies cough or dyspnea. GASTROINTESTINAL: Denies abdominal pain, nausea, vomiting, or diarrhea. GENITOURINARY: Denies dysuria or hematuria. SKIN: Denies rash or itching. MUSCULOSKELETAL: Denies back pain, joint pain, or myalgia. 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 Gastroesophageal reflux disease Hypertension Hyperthyroidism Multinodular goiter Osteoporosis Surgical History Surgical History (Updated 01/22/23 @ 13:35 by Iesha Tamez PA-C) History of benign breast biopsy History of blepharoplasty History of bunionectomy of left great toe History of cataract extraction with lens replacement History of colonoscopy with polypectomy History of excision of mass (11/2018) Excision retroperitoneal mass. 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 History of hysterectomy History of laparoscopic cholecystectomy Family History Family History Sibling Family history of chronic obstructive pulmonary disease Family history of lung cancer Family history of coronary artery disease Patient's brother is Father Family history of chronic obstructive pulmonary disease, Onset Age: 67 Patient's father is Mother Family history of heart disease in male family member before age 55, Onset Age: 72 Patient's mother is Family history of cardiovascular disease, Onset Age: 72 Other Family history of malignant neoplasm Social History Social History (Updated 01/22/23 @ 13:24 by Iesha Tamez PA-C) Social History: Surrogate medical decision maker: Nicky Ace, niece. Code status: Full code. Smoking status: Never smoker Second hand tobacco smoke exposure: No Alcohol intake: never Substance use: never Substance use type: does not use Lack of Transportation: No
[2023-01-22 09:10] LABS: Basophils Percent Auto 0.6 % (0.2-1.2); Eosinophils Absolute Auto 0.1 K/mm3 (0-0.3); Eosinophils Percent Auto 1.8 % (0-4.4); Hematocrit 38.3 % (37.0-47.0); Hemoglobin 13.1 g/dL (12.0-15.0); Immature Granulocyte Absolute 0.02 K/mm3 (0.00-0.031); Immature Granulocyte Percent A 0.3 % (0-0.5); Lymphocytes Absolute Auto 2.09 K/mm3 (0.9-3.2); Lymphocytes Percent Auto 30.7 % (18.3-44.2); Mean Corpuscular HGB Conc 34.2 g/dl (32-36); Mean Corpuscular Hemoglobin 32.1 pg (26-34); Mean Corpuscular Volume 93.9 fl (80-100); Mean Platelet Volume 9.2 fl (7.4-10.4); Monocytes Absolute Auto 0.6 K/mm3 (0.1-0.6); Monocytes Percent Auto 8.2 % (2.6-8.5); Neutrophils Percent Auto 58.4 % (45.5-73.1); Platelet Count Result 345 k/mm3 (150-375); Red Blood Count 4.08 M/mm3 (4.2-5.4); Red Cell Distribution Width 14.2 % (11.5-14.5); White Blood Count 6.8 K/mm3 (4.5-10.0)
[2023-01-22 09:18] LABS: Glucose Point of Care 108 mg/dl (65-105)
[2023-01-22 09:21] LABS: Partial Thromboplastin Time 26.2 SECONDS (22.3-36.8); Prothrombin Time 12.6 Seconds (11.1-14.7)
[2023-01-22 09:33] LABS: Alanine Aminotransferase 22 U/L (6-35); Albumin Level 4.1 g/dL (3.5-5.1); Alkaline Phosphatase 68 U/L (38-126); Anion Gap 7 mmol/L (8-16); Aspartate Amino Transferase 31 U/L (14-36); Bilirubin,Total 0.7 mg/dL (0.2-1.3); Blood Urea Nitrogen 22 mg/dL (7-17); Calcium 8.5 mg/dL (8.4-10.2); Carbon Dioxide 27 mmol/L (22-30); Chloride 102 mmol/L (98-107); Estimated Glomerular Filt Rate > 60; Glucose 107 mg/dL (65-110); Potassium 3.7 mmol/L (3.4-5.0); Sodium 136 mmol/L (137-145)
[2023-01-22 11:09] LABS: Appearance Urine Clear (Clear); Bilirubin Urine Negative (Negative); Blood Urine Negative (Negative); Color Urine Yellow (Yellow); Glucose Urine UA Negative (Negative); Ketones Urine Negative (Negative); Leukocyte Esterase Ur Negative LEU/UL (Negative); Nitrate Urine Negative (Negative); Protein Urine Negative (Negative); Specific Grav Ur 1.034 (1.001-1.035); Urobilinogen Urine 0.2 mg/dL (<2.0)
[2023-01-22 11:19] LABS: Add Urine Microscopic? NO
--- NOTE | 2023-01-22 12:26 | ADMGEN ---
This patient, Alessandra Sharma, was admitted to 3 [facility] Surg Room 303-01. Patient/family oriented to hospital policies and general routines including ID bracelet, bed and alarms, visiting hours, pain management, procedures, bathroom and other care routines, personal items, smoking policy, room service/diet, and visiting hours. Information on how to activate the Rapid Response Team has been discussed. Patient/Family are encouraged to report perceived risks to care and to ask questions if they do not understand what they are told or what they should do.
--- NOTE | 2023-01-22 13:41 | ECHO_ITS ---
Patient Info Name: Alessandra Sharma Age: 87 years : 1935 Gender: Female Ht: 48 in Wt: 118 lbs BSA: 1.39 m2 HR: 79 bpm BP: 130 / 75 mmHg Heart Rhythm: Sinus Rhythm Technical Quality: Good Exam Date: 01/22/2023 2:35 PM Exam Location: [facility] Pulmonary Patient Status: Outpatient Admit Date: 01/22/2023 Staff Ordering Physician: Iesha Tamez PA-C Study Assistant: Michelle Bagley RDCS Attending Provider: Jose Martin Alfredo MD Referring Physician: Joi HORTON; Exam Type: CA echo doppler w bubble study Study Info Indications - htn, stroke symptoms Complete two-dimensional, color flow and Doppler transthoracic echocardiogram is performed with agitated saline. Contrast/Agitated Saline Contrast/Ag. Saline: Agitated Saline Amount: 20.00 ml Administered By: Lakeisha Perea Existing IV Access: Yes IV Access Condition: patent with no signs of infiltration Summary 1. Left ventricular chamber dimension is normal. 2. Left ventricular systolic function is normal, estimated at 60-65%. 3. The left ventricular diastolic function is abnormal. 4. E/e' 14 is mildly elevated. 5. Left atrial chamber dimension is mildly enlarged. 6. There is mild aortic valve sclerosis. 7. There is mild mitral valve regurgitation. 8. There is trace tricuspid valve regurgitation. 9. No pulmonary hypertension, estimated pulmonary arterial systolic pressure is 28 mmHg. 10. There is trace pulmonic regurgitation. Left Ventricle E/e' 14 is mildly elevated. Left ventricular chamber dimension is normal. Left ventricular systolic function is normal, estimated at 60-65%. The left ventricular diastolic function is abnormal. Right Ventricle Right ventricular systolic function is normal and with normal TAPSE 1.8 cm. Right ventricular chamber dimension is normal. Left Atria Left atrial chamber dimension is mildly enlarged. Right Atria Right atrial chamber dimension is normal. Aortic Valve The aortic valve is trileaflet. There is mild aortic valve sclerosis. There is no aortic valve stenosis. There is no aortic valve regurgitation. Pulmonic Valve There is trace pulmonic regurgitation. Mitral Valve There is no mitral valve stenosis. There is mild mitral valve regurgitation. Tricuspid Valve There is trace tricuspid valve regurgitation. No pulmonary hypertension, estimated pulmonary arterial systolic pressure is 28 mmHg. Pericardium/Pleural There is no pericardial effusion. Inferior Vena Cava Normal inferior vena cava with >50% collapse upon inspiration consistent with normal right atrial pressure, 5 mmHg. Aorta The aortic root size at the sinus of Valsalva is normal. Left Ventricular Outflow Tract Name Value Normal LVOT 2D LVOT Diameter 1.9 cm LVOT Doppler LVOT Peak Gradient 3 mmHg LVOT Mean Gradient 1 mmHg LVOT VTI 17 cm LVOT VTI/AV VTI Ratio 0.5 LVOT Stroke Volume 49 ml
--- NOTE | 2023-01-22 14:00 | PM.IMHP ---
H&P: HPI History of Present Illness Date/Time: 01/22/23 14:00 Chief Complaint: Left hand weakness and tingling. Narrative: This is an 87-year-old female with hypertension, hypothyroidism, GERD, and history of fibrosarcoma of the retroperitoneum status post resection who presented to the emergency department from home for evaluation of left hand weakness and tingling. Patient provides the following history. It is somewhat challenging to get a good history from her as the story she tells me is somewhat different than that which she related to the triage nurse and the ED physician. I am not certain if she is downplaying her symptoms but when asked why she came to the ER today, she tells me that she was having difficulties getting her hearing aid in her left ear. It is documented that she had numbness and tingling in the left upper extremity, coordination issues with the left hand, and numbness on the left side of her face. She does not necessarily endorse that she had the symptoms nor does she deny them. At the time my evaluation however she denies feelings of numbness and tingling. Her neurologic exam is pretty good and there is no dysmetria or drift with the left arm on exam. She maintains however that she still cannot get her hearing aid in. She denies vertigo, visual changes, facial droop, and difficulty speaking and swallowing. She thinks that she had a TIA several years ago when she had difficulty speaking. No known history of carotid artery disease or cardiac dysrhythmia. Brain CT showed no significant abnormalities and CTA of the head and neck were really unremarkable. Due to concerns for possible TIA versus CVA, she is being admitted for close monitoring. Review of Systems Review of Systems: Twelve systems were reviewed and are negative except for as per HPI. 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 Gastroesophageal reflux disease Hypertension Hyperthyroidism Multinodular goiter Osteoporosis Surgical History Surgical History (Updated 01/22/23 @ 13:35 by Iesha Tamez PA-C) History of benign breast biopsy History of blepharoplasty History of bunionectomy of left great toe History of cataract extraction with lens replacement History of colonoscopy with polypectomy History of excision of mass (11/2018) Excision retroperitoneal mass. 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 History of hysterectomy History of laparoscopic cholecystectomy Family History Family History Sibling Family history of chronic obstructive pulmonary disease Family history of lung cancer Family history of coronary artery disease Patient's brother is Father Family history of chronic obstructive pulmonary disease, Onset Age: 67 Patient's father is Mother Family history of heart disease in male family member before age 55, Onset Age: 72 Patient's mother is Family history of cardiovascular disease, Onset Age: 72 Other Family history of malignant neoplasm Social History Social History (Updated 01/22/23 @ 13:24 by Iesha Tamez PA-C) Social History: Surrogate medical decision maker: Nicky Ace, niece. Code status: Full code. Smoking status: Never smoker Second hand tobacco smoke exposure: No Alcohol intake: never Substance use: never Substance use type: does not use Lack of Transportation: No Lack of Food: Never True Current Housing: I Have Housing Concerned About Future Housing: No Difficulty Paying Gas/Electric Bills: No Difficulty Paying for Meds: No Currently Unemployed: No Education: High School Diploma/GED Difficulty w/ Childcare or Family Care: No Additional living arrangements comments:
--- NOTE | 2023-01-22 14:00 | PCSTNOTE ---
Please refer to the Bedside Swallow Evaluation in the EMR. Please note, silent aspiration cannot be ruled out at bedside.
--- NOTE | 2023-01-22 15:02 | PCOTNOTE ---
Pt. has not yet had full workup or diagnosis for condition. Will be seen after evaluated by hospitalist.
[2023-01-22] MEDS: ASPIRIN 81 MG CHEWABLE TABLET 324 MG PO (15:09)
[2023-01-22] MEDS: OPTI-GEN TAB 1 TABLET PO (16:57)
[2023-01-22] MEDS: VALSARTAN 160 MG TABLET PO (16:57)
[2023-01-22] MEDS: amLODIPine BESYLATE 5 MG TABLET PO (16:57)
[2023-01-22] MEDS: LATANOPROST 0.005% OP SOLN 2.5 ML BTL 1 DROP EACH EYE (20:09)
[2023-01-23 00:24] VITALS: PULSE 70
[2023-01-23 04:00] VITALS: PULSE 71
[2023-01-23 06:00] VITALS: BP 138/68; PULSE 79; RESP 16; TEMP 36.5; O2SAT 98
[2023-01-23 06:13] LABS: Hematocrit 38.3 % (37.0-47.0); Hemoglobin 12.7 g/dL (12.0-15.0); Mean Corpuscular HGB Conc 33.2 g/dl (32-36); Mean Corpuscular Hemoglobin 32.1 pg (26-34); Mean Corpuscular Volume 96.7 fl (80-100); Mean Platelet Volume 9.3 fl (7.4-10.4); Platelet Count Result 309 k/mm3 (150-375); Red Blood Count 3.96 M/mm3 (4.2-5.4); Red Cell Distribution Width 14.3 % (11.5-14.5); White Blood Count 7.1 K/mm3 (4.5-10.0)
[2023-01-23 06:35] LABS: LDL Cholesterol Direct 86 mg/dL
[2023-01-23 06:39] LABS: Chloride 105 mmol/L (98-107); Potassium 3.8 mmol/L (3.4-5.0); Sodium 137 mmol/L (137-145)
[2023-01-23 06:40] LABS: Anion Gap 7 mmol/L (8-16); Blood Urea Nitrogen 13 mg/dL (7-17); Carbon Dioxide 25 mmol/L (22-30); Cholesterol 196 mg/dL (0-200); Estimated Glomerular Filt Rate > 60; Glucose 86 mg/dL (65-110); HDL Direct 66 mg/dL; Magnesium 2.2 mg/dL (1.6-2.3); Triglycerides 84 mg/dL (<150)
[2023-01-23 08:00] VITALS: PULSE 74
[2023-01-23] MEDS: CALCIUM CARBONATE (OSCAL) 500 MG TABLET 1000 MG PO (08:39)
[2023-01-23] MEDS: amLODIPine BESYLATE 5 MG TABLET PO (08:40)
[2023-01-23] MEDS: OPTI-GEN TAB 1 TABLET PO (08:40)
[2023-01-23] MEDS: methiMAzole 10 MG TAB PO (08:40)
[2023-01-23] MEDS: MULTIVITAMINS /C LUTEIN (CENTRUM SILVER) TABLET *BKC 1 TAB PO (08:40)
[2023-01-23] MEDS: VALSARTAN 160 MG TABLET PO (08:40)
[2023-01-23] MEDS: ASPIRIN 81 MG ENTERIC TABLET PO (08:40)
--- NOTE | 2023-01-23 11:45 | PM.DS ---
DS: Admitting Diagnosis Discharge Date 01/23/23 1145 Admitting Diagnosis TIA DS: Discharge Diagnosis Discharge Diagnosis (1) Transient neurologic deficit: Code(s): R29.818 - Other symptoms and signs involving the nervous system Status: Acute (2) Hypertension: Code(s): I10 - Essential (primary) hypertension Status: Acute (3) Hyperthyroidism: Code(s): E05.90 - Thyrotoxicosis, unspecified without thyrotoxic crisis or storm Status: Acute (4) Gastroesophageal reflux disease: Code(s): K21.9 - Gastro-esophageal reflux disease without esophagitis Status: Acute Plan The patient presented to the emergency department from home for evaluation of neurologic symptoms since waking as detailed in HPI. Labs, imaging, EKG, and all reports were personally reviewed. She is not a great historian and she perseverates on the fact that she is not able to get her left hearing aid in. At the time my evaluation she denies numbness, tingling, and weakness in the left arm and hand though she reported having though symptoms in the ED. She also apparently had some numbness on the left side her face that she reported in the ED but denied to me. Concerns are for TIA with differential diagnosis to include CVA, nerve impingement, or even demyelinating disease which is very unlikely. Monitor on telemetry overnight. Echocardiogram and brain MRI ordered ordered. CTA of head/neck was unremarkable. Continue neurologic checks q.4 hours. She has been started on aspirin daily. Check lipids in a.m. and consider starting statin. Blood pressures have been reasonable in the 130s to 140s systolic. Allow permissive hypertension over the next 24 hours or so though will continue antihypertensives. Neurology has been consulted and their input is greatly appreciated. Recent TSH was well within normal limits; continue methimazole. The rest of her home medications will be reviewed and resumed as appropriate. Brain MRI negative for any acute strokes. Echo was negative for any PFO and showed an EF of 60 60% abnormal been diastolic dysfunction. symptoms have resolved will start patient on Plavix and aspirin and atorvastatin while the lipid panel showed cholesterol 196, triglycerides 84, LDL 86, HDL 66 DS: Summary Hospital Course Hospital Course: patient is an 87-year-old female with a past medical history hypertension, hyperthyroidism, osteoporosis, GERD who presented to the ED with of left hand weakness and tingling. Patient stated that she was having hard time getting her left hearing aid in her ear and that she was having some coordination issues. Since admission patient's symptoms have resolved. Echo was performed showed 60 65% with an abnormal diastolic dysfunction. No PFO noted on the echo. Head CT showed no significant abnormality. CTA of the head and neck showed normal brain, 0% stenosis bilaterally in the internal carotid arteries. Lipid panel was drawn with cholesterol 196, triglycerides of 84, LDL 86, HDL 66. Patient has been started on atorvastatin 40 mg p.o. daily. MRI of the brain showed mild scattered white matter within the normal aging limits chronic small-vessel disease no other acute abnormality or stroke. Labs and vital signs have remained stable. Neurology has been consulted patient is started on Plavix and aspirin. Currently patient is wanting to go home. She denies any current chest pain, shortness a breath, nausea, vomiting, diarrhea or constipation. Will have patient follow-up with neurology in [address] Youssef about current plan of care. He agreed and wants patient to follow up in 3-4 months Status at Discharge Functional status at discharge: independent ambulation Overall status at discharge: patient is progressing back to baseline Time Spent with Patient Time attestation: Total time spent providing and/or coordinating discharge services: 48 minutes Time spent: Greater than 30 minutes Specific discha
[2023-01-23 12:00] VITALS: PULSE 77
[2023-01-23] MEDS: CLOPIDOGREL BISULFATE 75 MG TABLET PO (12:34)
[2023-01-23] MEDS: ACETAMINOPHEN 500 MG TABLET 1000 MG PO (12:34)
[2023-01-23] MEDS: ATORVASTATIN 40 MG TABLET PO (12:34)
[2023-01-23 14:00] VITALS: BP 123/59; PULSE 74; RESP 16; TEMP 36.3; O2SAT 98
== END 2023-01-23 15:15 | disposition home or self-care (01) ==
LOC: ANHED 10:39 → ANH3MEDSUR 12:26
PROVIDERS: Physician Assistant; Admitting Provider Internal Medicine; Emergency Provider Emergency Medicine; PCP Internal Medicine; Visit Provider Chiropractor
DX: R29.818 Other symptoms and signs involving the nervous system (principal); I11.0 Hypertensive heart disease with heart failure; E05.90 Thyrotoxicosis, unspecified without thyrotoxic crisis or storm; K21.9 Gastro-esophageal reflux disease without esophagitis; R20.2 Paresthesia of skin; G47.00 Insomnia, unspecified; I08.3 Combined rheumatic disorders of mitral, aortic and tricuspid valves; I50.30 Unspecified diastolic (congestive) heart failure; R90.82 White matter disease, unspecified; E04.2 Nontoxic multinodular goiter; E03.9 Hypothyroidism, unspecified; M81.0 Age-related osteoporosis without current pathological fracture; Z79.1 Long term (current) use of non-steroidal anti-inflammatories (NSAID); Z79.899 Other long term (current) drug therapy
CPT/HCPCS: 36415; 70450; 70496; 70498; 70553; 80048; 80053; 80061; 81003; 82607; 82948; 83735; 85025; 85027; 85610; 85730; 92610; 93005; 93306; 96375; 97161; 99285; A9270; A9577; G0378; Q9967

== ENCOUNTER 2023-07-31 08:44 | Outpatient (CLI) | payer MEDICARE, BC, SELFPAY ==
--- NOTE | ~2023-07-31 | MM_ITS ---
EXAMINATION: MM screening vasquez BI w higinio HISTORY: Screening TECHNIQUE: Craniocaudal and mediolateral oblique 3-D tomosynthesis images were obtained and synthetic 2-D images were generated. CAD analysis was submitted and interpreted. COMPARISON: Comparison to multiple prior studies sequentially, with oldest reviewed study dated 03/2018. BREAST PARENCHYMAL COMPOSITION: The breasts are heterogeneously dense, which may obscure small masses FINDINGS: There is no evidence of suspicious mass, calcification, or architectural distortion to sugg est malignancy in either breast. There has been no suspicious interval change. IMPRESSION: 1. No mammographic evidence of malignancy. 2. Recommend routine screening mammography in one year. BI-RADS Category 1: Negative Reviewed, dictated and finalized at location A.
--- NOTE | ~2023-07-31 | DEXA_ITS ---
Bone Density Report Name: NORMAN POWELL Age: 87 Sex: Female Ethnicity: White Date of : 1935 Indication: osteopenia; height loss; hysterectomy; postmenopausal Referring Provider: BREEZY, ROB Ham Study: Bone densitometry was performed. Exam Date: July 31, 2023 Accession number: [id number] Bone Density: Region BMD T-score Z-score Classification AP Spine(L1, L4) 1.309 2.5 5.3 Normal Femoral Neck (Left) 0.626 -2.0 0.5 Osteopenia Total Hip (Left) 0.770 -1.4 0.9 Osteopenia Femoral Neck (Right) 0.550 -2.7 -0.2 Osteoporosis Total Hip (Right) 0.779 -1.3 1.0 Osteopenia Total Hip Mean 0.774 -1.4 1.0 Osteopenia World Health Organization criteria for BMD impression classify patients as: Normal (T-score at or above -1.0), Osteopenia (T-score between -1.0 and -2.5), or Osteoporosis (T-score at or below -2.5). 10-year Fracture Risk: FRAX not reported because: Some T-score for Spine Total or Hip Total or Femoral Neck at or below -2.5 Previous Exams: Region Exam Age BMD T-score BMD Change BMD Change Date g/cm2 vs Baseline vs Previous AP Spine (L1,L4) 07/31/2023 87 1.309 2.5 0.371 (39.5%)# 0.082 (6.7%)* 01/18/2019 83 1.227 1.7 0.289 (30.8%)# 0.046 (3.9%)* 12/14/2016 81 1.181 1.3 0.243 (25.9%)# 0.211 (21.7%)* 12/10/2014 79 0.970 -0.6 0.032 (3.4%)# 0.032 (3.4%)# 12/05/2012 77 0.938 -0.9 Total Hip(Left) 07/31/2023 87 0.770 -1.4 -0.007 (-0.9%) -0.025 (-3.1%) 04/02/2021 85 0.794 -1.2 0.018 (2.3%)# 0.007 (0.9%) 01/18/2019 83 0.787 -1.3 0.010 (1.3%)# 0.024 (3.2%) 12/14/2016 81 0.763 -1.5 -0.014 (-1.8%) 0.032 (4.4%)* 12/10/2014 79 0.731 -1.7 -0.046 (-5.9%) -0.046 (-5.9%) 12/05/2012 77 0.777 -1.4 Total Hip(Right) 07/31/2023 87 0.779 -1.3 -0.021 (-2.6%) -0.035 (-4.3%) 04/02/2021 85 0.814 -1.1 0.014 (1.8%)# 0.026 (3.2%) 01/18/2019 83 0.788 -1.3 -0.011 (-1.4%) 0.045 (6.1%)* 12/14/2016 81 0.743 -1.6 -0.056 (-7.1%) 0.019 (2.6%) 12/10/2014 79 0.724 -1.8 -0.075 (-9.4%) -0.075 (-9.4%) 12/05/2012 77 0.799 -1.2 *Denotes significance at 95% confidence level, LSC for AP Spine = 0.022 g/cm2, LSC for Total Hip = 0.027 g/cm2 # Denotes dissimilar scan types or analysis methods Clinical Information Provided by Patient: Has used the following medications: Calcium Has the following medical conditions: Hysterectomy Patient maximum height was 60 Menopause Age: 39 No regular weight bearing exerci
== END 2023-07-31 08:45 | disposition home or self-care (01) ==
PROVIDERS: PCP Family Medicine; Visit Provider Family Medicine
DX: Z12.31 Encounter for screening mammogram for malignant neoplasm of breast (principal); M81.0 Age-related osteoporosis without current pathological fracture; M85.89 Other specified disorders of bone density and structure, multiple sites
CPT/HCPCS: 77063; 77067; 77080

== ENCOUNTER 2023-09-24 07:59 | Outpatient (CLI) | payer MEDICARE, BC, SELFPAY ==
[2023-09-24 08:45] LABS: Alanine Aminotransferase 23 U/L (6-35); Albumin Level 4.7 g/dL (3.5-5.1); Alkaline Phosphatase 136 U/L (38-126); Anion Gap 10 mmol/L (8-16); Aspartate Amino Transferase 38 U/L (14-36); Bilirubin,Total 0.6 mg/dL (0.2-1.3); Blood Urea Nitrogen 14 mg/dL (7-17); Calcium 10.1 mg/dL (8.4-10.2); Carbon Dioxide 31 mmol/L (22-30); Chloride 99 mmol/L (98-107); Cholesterol 171 mg/dL (0-200); Estimated Glomerular Filt Rate > 60; Glucose 106 mg/dL (65-110); HDL Direct 86 mg/dL; Sodium 140 mmol/L (137-145); Triglycerides 107 mg/dL (<150)
[2023-09-24 08:56] LABS: LDL Cholesterol Direct 55 mg/dL
== END 2023-09-24 08:00 | disposition home or self-care (01) ==
PROVIDERS: PCP Family Medicine; Visit Provider Nurse Practitioner
DX: E78.5 Hyperlipidemia, unspecified (principal); E05.90 Thyrotoxicosis, unspecified without thyrotoxic crisis or storm
CPT/HCPCS: 36415; 80053; 80061; 84443

== ENCOUNTER 2023-10-15 12:01 | Outpatient (CLI) | payer MEDICARE, BC, SELFPAY ==
[2023-10-15 12:29] LABS: Hematocrit 36.7 % (37.0-47.0); Hemoglobin 12.4 g/dL (12.0-15.0); Mean Corpuscular HGB Conc 33.8 g/dl (32-36); Mean Corpuscular Hemoglobin 33.1 pg (26-34); Mean Corpuscular Volume 97.9 fl (80-100); Mean Platelet Volume 9.1 fl (7.4-10.4); Platelet Count Result 369 k/mm3 (150-375); Red Blood Count 3.75 M/mm3 (4.2-5.4); Red Cell Distribution Width 13.8 % (11.5-14.5); White Blood Count 8.4 K/mm3 (4.5-10.0)
[2023-10-15 12:51] LABS: Anion Gap 11 mmol/L (8-16); Blood Urea Nitrogen 19 mg/dL (7-17); Calcium 9.7 mg/dL (8.4-10.2); Carbon Dioxide 27 mmol/L (22-30); Chloride 98 mmol/L (98-107); Estimated Glomerular Filt Rate > 60; Glucose 80 mg/dL (65-110); Sodium 136 mmol/L (137-145)
== END 2023-10-15 12:02 | disposition home or self-care (01) ==
LOC: ANHLAB 12:05
PROVIDERS: PCP Family Medicine; Visit Provider Family Medicine
DX: C44.91 Basal cell carcinoma of skin, unspecified (principal); Z86.73 Personal history of transient ischemic attack (TIA), and cerebral infarction without residual deficits; Z85.831 Personal history of malignant neoplasm of soft tissue; R29.818 Other symptoms and signs involving the nervous system; M81.0 Age-related osteoporosis without current pathological fracture; K21.9 Gastro-esophageal reflux disease without esophagitis; I10 Essential (primary) hypertension; E87.6 Hypokalemia; E05.90 Thyrotoxicosis, unspecified without thyrotoxic crisis or storm
CPT/HCPCS: 36415; 80048; 85027

== ENCOUNTER 2024-04-28 13:25 | Outpatient (CLI) | payer MEDICARE, BC, SELFPAY ==
--- NOTE | ~2024-04-28 | XR_ITS ---
XR cervical spine 4-5V Ordering provider: Joe Mina MD History: . Z00.00 - Encounter for general adult medical examination ... . Comparison: None. FINDINGS: VERTEBRAL BODIES: Normal height and alignment. No visible fracture or subluxation. The dens is intact . No evidence of spondylolisthesis. DISK SPACES: Narrowing of the disc C5-C6, C6-C7 and C7-T1. Multilevel facet joint disease. Multilevel uncovertebral joint osteoarthritic changes. PARASPINOUS SOFT TISSUES: No prevertebral soft tissue swelling. IMPRESSION: No acute osseous abnormality cervical spine. Multilevel degenerative disc disease. Multilevel facet joint and uncovertebral joint osteoarthritic c hanges. Reviewed, dictated and finalized at location A. IMPRESSION: No acute osseous abnormality cervical spine. Multilevel degenerative disc disease. Multilevel facet joint and uncovertebral joint osteoarthritic changes.
== END 2024-04-28 13:26 | disposition home or self-care (01) ==
LOC: ANHIMG 13:26
PROVIDERS: PCP Family Medicine; Visit Provider Family Medicine
DX: E05.90 Thyrotoxicosis, unspecified without thyrotoxic crisis or storm (principal); E55.9 Vitamin D deficiency, unspecified; I10 Essential (primary) hypertension; J45.909 Unspecified asthma, uncomplicated; G45.9 Transient cerebral ischemic attack, unspecified; M50.30 Other cervical disc degeneration, unspecified cervical region
CPT/HCPCS: 72050

== ENCOUNTER 2024-05-03 07:54 | Outpatient (CLI) | payer MEDICARE, BC, SELFPAY ==
[2024-05-03 08:42] LABS: Hematocrit 40.1 % (37.0-47.0); Hemoglobin 13.5 g/dL (12.0-15.0); Mean Corpuscular HGB Conc 33.7 g/dl (32-36); Mean Corpuscular Hemoglobin 32.4 pg (26-34); Mean Corpuscular Volume 96.2 fl (80-100); Mean Platelet Volume 9.6 fl (7.4-10.4); Platelet Count Result 353 k/mm3 (150-375); Red Blood Count 4.17 M/mm3 (4.2-5.4); Red Cell Distribution Width 14.5 % (11.5-14.5); White Blood Count 6.9 K/mm3 (4.5-10.0)
[2024-05-03 08:52] LABS: Alanine Aminotransferase 20 U/L (6-35); Albumin Level 4.6 g/dL (3.5-5.1); Alkaline Phosphatase 134 U/L (38-126); Anion Gap 11 mmol/L (4-12); Aspartate Amino Transferase 30 U/L (14-36); Bilirubin,Total 0.6 mg/dL (0.2-1.3); Blood Urea Nitrogen 20 mg/dL (7-17); Calcium 9.2 mg/dL (8.4-10.2); Carbon Dioxide 25 mmol/L (22-30); Chloride 103 mmol/L (98-107); Cholesterol 144 mg/dL (0-200); Estimated Glomerular Filt Rate > 60; Glucose 105 mg/dL (65-110); HDL Direct 80 mg/dL; Potassium 3.6 mmol/L (3.4-5.0); Sodium 139 mmol/L (137-145); Triglycerides 146 mg/dL (<150)
[2024-05-03 09:03] LABS: LDL Cholesterol Direct 50 mg/dL
[2024-05-03 09:08] LABS: Free T4 Free Thyroxine 1.15 ng/mL (0.78-2.19); Vitamin D 25 Hydroxy 53.1 ng/mL
== END 2024-05-03 07:55 | disposition home or self-care (01) ==
LOC: ANHLAB 07:59
PROVIDERS: PCP Family Medicine; Visit Provider Family Medicine
DX: E05.90 Thyrotoxicosis, unspecified without thyrotoxic crisis or storm (principal); E55.9 Vitamin D deficiency, unspecified; G45.9 Transient cerebral ischemic attack, unspecified; I10 Essential (primary) hypertension; J45.909 Unspecified asthma, uncomplicated
CPT/HCPCS: 36415; 80053; 80061; 82306; 82607; 84439; 84443; 85027; 86038; 86039

== ENCOUNTER 2024-08-22 07:17 | Outpatient (CLI) | payer MEDICARE, BC, SELFPAY ==
--- NOTE | ~2024-08-22 | MM_ITS ---
EXAMINATION: MM screening vasquez BI w higinio HISTORY: Screening TECHNIQUE: Craniocaudal and mediolateral oblique 3-D tomosynthesis images were obtained and synthetic 2-D images were generated. CAD analysis was submitted and interpreted. COMPARISON: Comparison to multiple prior studies sequentially, with oldest reviewed study dated 04/2019. BREAST PARENCHYMAL COMPOSITION: Dense: The breasts are heterogeneously dense, which may obscure small masses FINDINGS: There is no evidence of suspicious mass, calcification, or architectural distortion to sugg est malignancy in either breast. There has been no suspicious interval change. IMPRESSION: 1. No mammographic evidence of malignancy. 2. Recommend routine screening mammography in one year. BI-RADS Category 1: Negative Reviewed, dictated and finalized at location B.
== END 2024-08-22 07:18 | disposition home or self-care (01) ==
LOC: ANHIMG 07:21
PROVIDERS: PCP Family Medicine; Visit Provider Family Medicine
DX: Z12.31 Encounter for screening mammogram for malignant neoplasm of breast (principal)
CPT/HCPCS: 77063; 77067

== ENCOUNTER 2024-11-02 08:50 | Outpatient (CLI) | payer MEDICARE, BC, SELFPAY ==
[2024-11-02 09:49] LABS: Hematocrit 40.2 % (37.0-47.0); Hemoglobin 13.3 g/dL (12.0-15.0); Mean Corpuscular HGB Conc 33.1 g/dl (32-36); Mean Corpuscular Hemoglobin 33.1 pg (26-34); Mean Platelet Volume 9.1 fl (7.4-10.4); Platelet Count Result 353 k/mm3 (150-375); Red Blood Count 4.02 M/mm3 (4.2-5.4); Red Cell Distribution Width 14.6 % (11.5-14.5); White Blood Count 6.3 K/mm3 (4.5-10.0)
[2024-11-02 10:00] LABS: Alanine Aminotransferase 25 U/L (6-35); Albumin Level 4.4 g/dL (3.5-5.1); Alkaline Phosphatase 79 U/L (38-126); Anion Gap 6 mmol/L (4-12); Aspartate Amino Transferase 30 U/L (14-36); Bilirubin,Total 0.5 mg/dL (0.2-1.3); Blood Urea Nitrogen 17 mg/dL (7-17); Calcium 8.9 mg/dL (8.4-10.2); Carbon Dioxide 26 mmol/L (22-30); Chloride 107 mmol/L (98-107); Estimated Glomerular Filt Rate > 60; Glucose 102 mg/dL (65-110); Potassium 3.9 mmol/L (3.4-5.0); Sodium 139 mmol/L (137-145)
[2024-11-02 10:35] LABS: Vitamin D 25 Hydroxy 63.4 ng/mL
== END 2024-11-02 08:51 | disposition home or self-care (01) ==
LOC: ANHLAB 08:52
PROVIDERS: PCP Family Medicine; Visit Provider Family Medicine
DX: E55.9 Vitamin D deficiency, unspecified (principal); E03.9 Hypothyroidism, unspecified; E05.90 Thyrotoxicosis, unspecified without thyrotoxic crisis or storm; I10 Essential (primary) hypertension
CPT/HCPCS: 36415; 80053; 82306; 82607; 84443; 85027